=== PATIENT | female | born 1935 | race Caucasian/White ===

== ENCOUNTER 2016-09-15 20:32 | Emergency (ER) | payer OTHER ==
[~2016-09-15] VITALS: Ht 157.5 cm; Wt 66.0 kg
[~2016-09-15 20:32] MED LIST: ASPEC325 PO; CALCTAB5 PO; CLR10 PO; FSM70 PO; LSN25 PO; METO25TA3 PO; MULT-506 PO; SIMV40TA2 PO
[2016-09-15 20:34] VITALS: Ht 157.5 cm; Wt 66.0 kg
--- NOTE | 2016-09-15 20:44 | EMERGENCY ROOM VISIT NOTE ---
History Report prepared by Stewart: Oscar Briceno Under the Supervision of: Dr. Zach Burrows M.D. First contact with patient: 20:34 Chief Complaint: HYPERTENSION Stated Complaint: HYPERTENSION History of Present Illness The patient is a 81 year old female who presents to the Emergency Room with complaints of hypertension that began today. The patient states her blood pressure was around 198/? all day today. Currently her blood pressure is 203/ 76. She states that her blood pressure will not go down. She was told to take an extra half of a Metoprolol pill when her symptoms were occurring. She also has a popped blood vessel in her right eye. She notes that she has been eating salted almonds even though she is supposed to watch her sodium intake. She takes a baby aspirin everyday. She also takes Prednisone for her rheumatoid arthritis. She denies any other symptoms. Source of History: patient Onset: today Position: other (global) Symptom Intensity: 203/76 Quality: other (HTN) Timing: constant Note: She has a popped blood vessel in her right eye. She denies any other symptoms. Review of Systems See HPI for pertinent positives & negatives. A total of 10 systems reviewed and were otherwise negative. Past Medical & Surgical Medical Problems: (1) HTN (hypertension) (2) Rheumatoid arthritis Family History Omitted due to age. Social History Smoking Status: Unknown if Ever Smoked Smokeless Tobacco Use: No Drug Use: none Occupation Status: retired Current/Historical Medications Scheduled Ascorbic Acid (Vitamin C), 500 MG PO DAILY Aspirin (Aspirin Ec), 81 MG PO DAILY Lisinopril (Zestril), 30 MG PO DAILY Metoprolol Succinate (Metoprolol Succinate ER), 25 MG PO DAILY Multiple Vitamins W/ Minerals (Womens One Daily), 1 TAB PO DAILY Prednisone (Prednisone), 5 MG PO DAILY Allergies Coded Allergies: Latex (Unverified Allergy, Severe, ANAPHYLAXIS, 11/16/10) Penicillins (Unverified Allergy, Severe, ANAPHYLAXIS, 11/16/10) SHELLFISH (Unverified Allergy, Severe, ANAPHYLAXIS, 11/16/10) Physical Exam Vital Signs Date Time Temp Pulse Resp B/P Pulse Ox O2 Delivery O2 Flow Rate FiO2 09/15/16 23:25 36.7 64 18 153/89 94 09/15/16 23:24 64 18 153/89 94 Room Air 09/15/16 21:32 54 16 95 09/15/16 21:31 159/92 09/15/16 21:17 59 18 95 09/15/16 21:14 55 09/15/16 21:01 175/72 09/15/16 20:34 36.7 56 20 204/76 97 Room Air Physical Exam GENERAL: Patient is a healthy-appearing well-nourished HEAD: Normocephalic atraumatic EYES: Ocular movements intact pupils equal and react to light. Injected sclera on the right. Does not surround the iris. OROPHARYNX mucous membranes are moist no exudates present no erythema or edema present NECK: Supple no nuchal rigidity CHEST: Good equal expansion LUNGS: Clear and equal to auscultation CARDIAC: Normal S1 and S2 ABDOMEN: Soft nontender no guarding BACK: No CVA tenderness EXTREMITIES: No pain upon palpation normal muscle strength in all groups no clubbing cyanosis or edema NEURO: Patient is following commands is answering questions appropriately. Alert and oriented x3 Cranial Nerves 2-12 grossly intact Medical Decision & Procedures ER Provider Diagnostic Interpretation: Radiology results as stated below per my review and radiologist interpretation: SINGLE VIEW CHEST CLINICAL HISTORY: Hypertension. FINDINGS: An AP, portable, upright chest radiograph is compared to study dated 11/28/2010. The examination is degraded by portable technique and patient rotation. The heart is top normal for projection and there is atherosclerotic calcification of the thoracic aorta. The pulmonary vasculature is noncongested. Chronic interstitial thickening is unchanged. Minimal left basilar atelectasis is observed. There is no airspace consolidation typical for pneumonia or large pleural effusion. No pneumothorax is seen. The skeletal structures are osteopenic. Degenerative change and scoliosis are noted in the thoracic spine. IMPRESSION: No acute cardiopulmonary abnormality. Electronically signed by: Jose Ridley M.D. 09/15/2016 9:09 PM Dictated Date/Time: 09/15/2016 9:09 PM Laboratory Results 09/15/16 21:00 Red Blood Count 4.41, Mean Corpuscular Volume 92.3, Mean Corpuscular Hemoglobin 31.3, Mean Corpuscular Hemoglobin Concent 33.9, Mean Platelet Volume 11.5, Neutrophils (%) (Auto) 70.9, Lymphocytes (%) (Auto) 17.0, Monocytes (%) (Auto) 9.0, Eosinophils (%) (Auto) 2.5, Basophils (%) (Auto) 0.4, Neutrophils # (Auto) 6.08, Lymphocytes # (Auto) 1.46, Monocytes # (Auto) 0.77, Eosinophils # (Auto) 0.21, Basophils # (Auto) 0.03 09/15/16 21:00 Test 09/15/16 21:00 White Blood Count 8.57 K/uL (4.8-10.8) Red Blood Count 4.41 M/uL (4.2-5.4) Hemoglobin 13.8 g/dL (12.0-16.0) Hematocrit 40.7 % (37-47) Mean Corpuscular Volume 92.3 fL (80-100) Mean Corpuscular Hemoglobin 31.3 pg (25-34) Mean Corpuscular Hemoglobin Concent 33.9 g/dl (32-36) Platelet Count 209 K/uL (130-400) Mean Platelet Volume 11.5 fL (7.4-10.4) Neutrophils (%) (Auto) 70.9 % Lymphocytes (%) (Auto) 17.0 % Monocytes (%) (Auto) 9.0 % Eosinophils (%) (Auto) 2.5 % Basophils (%) (Auto) 0.4 % Neutrophils # (Auto) 6.08 K/uL (1.4-6.5) Lymphocytes # (Auto) 1.46 K/uL (1.2-3.4) Monocytes # (Auto) 0.77 K/uL (0.11-0.59) Eosinophils # (Auto) 0.21 K/uL (0-0.5) Basophils # (Auto) 0.03 K/uL (0-0.2) RDW Standard Deviation 47.7 fL (36.4-46.3) RDW Coefficient of Variation 14.1 % (11.5-14.5) Immature Granulocyte % (Auto) 0.2 % Immature Granulocyte # (Auto) 0.02 K/uL (0.00-0.02) Prothrombin Time 11.4 SECONDS (9.0-12.0) Prothromb Time International Ratio 1.1 (0.9-1.1) Activated Partial Thromboplast Time 25.7 SECONDS (21.0-31.0) Partial Thromboplastin Ratio 1.0 Urine Color YELLOW Urine Appearance CLEAR (CLEAR) Urine pH 6.0 (4.5-7.5) Urine Specific [place] 1.000 (1.000-1.030) Urine Protein NEG (NEG) Urine Glucose (UA) NEG (NEG) Urine Ketones NEG (NEG) Urine Occult Blood TRACE (NEG) Urine Nitrite NEG (NEG) Urine Bilirubin NEG (NEG) Urine Urobilinogen NEG (NEG) Urine Leukocyte Esterase TRACE (NEG) Urine WBC (Auto) 1-5 /hpf (0-5) Urine RBC (Auto) 0-4 /hpf (0-4) Urine Hyaline Casts (Auto) 0 /lpf (0-5) Urine Epithelial Cells (Auto) 0-5 /lpf (0-5) Urine Bacteria (Auto) NEG (NEG) Anion Gap 8.0 mmol/L (3-11) Est Creatinine Clear Calc Drug Dose 54.8 ml/min Estimated GFR () 90.2 Estimated GFR (Non- 77.8 BUN/Creatinine Ratio 22.7 (10-20) Calcium Level 9.1 mg/dl (8.5-10.1) Total Bilirubin 0.7 mg/dl (0.2-1) Direct Bilirubin 0.2 mg/dl (0-0.2) Aspartate Amino Transf (AST/SGOT) 21 U/L (15-37) Alanine Aminotransferase (ALT/SGPT) 24 U/L (12-78) Alkaline Phosphatase 41 U/L (45-117) Total Creatine Kinase 115 U/L (26-192) Creatine Kinase MB 3.0 ng/ml (0.5-3.6) Creatine Kinase MB Ratio 2.6 (0-3.0) Troponin I < 0.015 ng/ml (0-0.045) Total Protein 7.0 gm/dl (6.4-8.2) Albumin 4.0 gm/dl (3.4-5.0) Lipase 118 U/L (73-393) Thyroid Stimulating Hormone (TSH) 3.860 uIu/ml (0.300-4.500) Labs reviewed by ED physician. ECG Indication: other (Hypertension) Rate (beats per minute): 55 Rhythm: sinus bradycardia Findings: 1st degree AV block, no acute ischemic change, no ectopy ED Course 2033: Past medical records reviewed. The patient was evaluated in room B6. A complete history and physical examination was performed. 2215: Upon reexamination the patient is resting. I discussed results and treatment plan with the patient. She verbalizes agreement and understanding. The patient is ready for discharge. Medical Decision Differential diagnosis: Etiologies such as toxicologic, infection, hypoglycemia, electrolyte abnormalities, cardiac sources, intracerebral event, neurologic, as well as others were entertained. This is an 81-year-old female who presents emergency department complaining of hypertension. The patient's blood pressure was grossly elevated at home however she admits to eating salty almonds. She also took half of her blood pressure medication pill at home. I will note that the patient is normotensive here in the emergency department and besides a scleral bleed is asymptomatic. The patient's blood pressure has fallen without me doing anything. She agreed to be observed for 2 hours while check her laboratory work. I do believe that the patient as well as to be discharged home for follow-up with her primary care physician. Patient was in agreement with the treatment plan. Impression Primary Impression: HTN (hypertension) Scribe Attestation The scribe's documentation has been prepared under my direction and personally reviewed by me in its entirety. I confirm that the note above accurately reflects all work, treatment, procedures, and medical decision making performed by me. Departure Information Dispostion Home / Self-Care Referrals Juan Martinez (PCP) Anselmo Davis M.D. Forms HOME CARE DOCUMENTATION FORM, IMPORTANT VISIT INFORMATION, WORK / SCHOOL INSTRUCTIONS Patient Instructions ED Hypertension Conf Out Of Control, Hypertension Control, My [facility] Additional Instructions Follow up with DR Davis's office You have been examined and treated today on an emergency basis only. This is not a substitute for, or an effort to provide, complete comprehensive medical care. It is impossible to recognize and treat all injuries or illnesses in a single emergency department visit. It is therefore important that you follow up closely with Dr Davis. Call as soon as possible for an appointment. Thank you for your time and consideration. I look forward to speaking with you again soon. Please don't hesitate to call us if you have any questions. Problem Qualifiers Primary Impression: HTN (hypertension) Hypertension type: essential hypertension Qualified Codes: I10 - Essential ( primary) hypertension
[2016-09-15] MEDS ORDERED: ASCO-63 PO (20:53)
[2016-09-15] MEDS ORDERED: TPRSR25 PO (20:53)
[2016-09-15] MEDS ORDERED: ASPI81TA28 PO (20:53)
[2016-09-15] MEDS ORDERED: PRED-301 PO (20:53)
[2016-09-15] MEDS ORDERED: MULT-240 PO (20:53)
[2016-09-15] MEDS ORDERED: LSNP/30 PO (20:53)
[2016-09-15 21:10] LABS: BASO % 0.4 %; BASO ABS # 0.03 K/uL (0-0.2); COMPLETE YES; EOS % 2.5 %; HEMATOCRIT 40.7 % (37-47); IG% 0.2 %; LYMPH ABS # 1.46 K/uL (1.2-3.4); MEAN CELL VOLUME 92.3 fL (80-100); MEAN CORPUSCULAR HEMOGLOBIN 31.3 pg (25-34); MEAN CORPUSCULAR HGB CONC 33.9 g/dl (32-36); MEAN PLATELET VOLUME 11.5 fL (7.4-10.4); NEUT % 70.9 %; PLATELET COUNT 209 K/uL (130-400); RED BLOOD COUNT 4.41 M/uL (4.2-5.4); WHITE BLOOD COUNT 8.57 K/uL (4.8-10.8)
--- NOTE | 2016-09-15 21:11 | DIAGNOSTIC IMAGING REPORT ---
SINGLE VIEW CHEST CLINICAL HISTORY: Hypertension. FINDINGS: An AP, portable, upright chest radiograph is compared to study dated 11/28/2010. The examination is degraded by portable technique and patient rotation. The heart is top normal for projection and there is atherosclerotic calcification of the thoracic aorta. The pulmonary vasculature is noncongested. Chronic interstitial thickening is unchanged. Minimal left basilar atelectasis is observed. There is no airspace consolidation typical for pneumonia or large pleural effusion. No pneumothorax is seen. The skeletal structures are osteopenic. Degenerative change and scoliosis are noted in the thoracic spine. IMPRESSION: No acute cardiopulmonary abnormality. Electronically signed by: Jose Ridley M.D. 09/15/2016 9:09 PM Dictated Date/Time: 09/15/2016 9:09 PM
[2016-09-15 21:20] LABS: INR 1.1 (0.9-1.1); PROTHROMBIN TIME (PATIENT) 11.4 SECONDS (9.0-12.0)
[2016-09-15 21:26] LABS: ALT/SGPT 24 U/L (12-78); BLOOD UREA NITROGEN 17 mg/dl (7-18); BUN/CREATININE RATIO 22.7 (10-20); CALCIUM 9.1 mg/dl (8.5-10.1); CARBON DIOXIDE 27 mmol/L (21-32); CHLORIDE 106 mmol/L (98-107); CREATININE 0.73 mg/dl (0.60-1.20); GLUCOSE 90 mg/dl (70-99); POTASSIUM 3.8 mmol/L (3.5-5.1); SODIUM 141 mmol/L (136-145)
[2016-09-15 21:30] LABS: URINE APPEARANCE CLEAR (CLEAR); URINE BILIRUBIN NEG (NEG); URINE COLOR YELLOW; URINE EPITHELIAL CELL AUTO 0-5 /lpf (0-5); URINE NITRITE NEG (NEG); UROBILINOGEN NEG (NEG)
[2016-09-15 21:36] LABS: ALKALINE PHOSPHATASE 41 U/L (45-117); AST/SGOT 21 U/L (15-37); CKMB/CK RATIO 2.6 (0-3.0)
[2016-09-15 21:38] LABS: MANUAL MICROSCOPIC REQUIRED? NO; REVIEW REQ? NO
[2016-09-15 23:25] VITALS: BP 153/89; PULSE 64; TEMP 36.7; O2SAT 94
== END 2016-09-15 23:26 | disposition home or self-care (01) ==
LOC: EDBD 20:32 → C.EDB 20:33
DX: I10 Essential (primary) hypertension (principal); Z79.82 Long term (current) use of aspirin; Z79.52 Long term (current) use of systemic steroids; H57.8 Other specified disorders of eye and adnexa; M06.9 Rheumatoid arthritis, unspecified; Z79.899 Other long term (current) drug therapy

== ENCOUNTER 2019-06-26 18:09 | Inpatient (IN) ==
--- NOTE | 2019-06-26 18:37 | Emergency Department Note ---
Entered by Shayy Vazquez acting as a scribe for Elvin Garcia MD History of Present Illness General Chief complaint: Cardiac Assessment Stated complaint: NEAR SYNCOPE Time Seen by Provider: 06/26/19 18:21 History of Present Illness Provider complaint: chest pain Onset (ago): hour(s) (1.5) Location: chest Radiation: non-radiation Severity: similar to prior episodes (of NM 2 years ago) Pain Consistency: + other (resolving) Associated symptoms: + diaphoresis and + other (walking 4 blocks to get newpaper when pain started, near-syncopal, sat down on ground once pain started and triedd to breathe slowly) Treatments prior to arrival: other (Aspirin via EMS) The patient is an 83 year old female who presents to the ED with complaints of resolving chest pain that started 1.5 hours ago. The patient states that she was walking 4 blocks to get the newspaper when her chest pain started. The patient states that she also became diaphoretic and near-syncopal at this time. The patient states that she sat down on the ground when the pain started to tried to breathe slowly. The patient states that the pain is non-radiating. The patient notes that she has a history of NM 2 years ago and this feels similar. The patient states that she was given Aspirin via EMS and she is now feeling better. Home Medications Home Medications Medication Instructions Recorded Confirmed Type aspirin 81 mg tablet,delayed 81 mg PO DAILY #30 tab 01/03/19 06/26/19 Rx release multivitamin 1 cap PO DAILY #30 cap 01/03/19 06/26/19 Rx metoprolol succinate 50 mg 50 mg PO DAILY #90 tab 03/20/19 06/26/19 Rx tablet,extended release 24 hr losartan 100 mg tablet 100 mg PO DAILY #90 tab 04/24/19 06/26/19 Rx prednisone 5 mg tablet 5 mg PO DAILY #90 tab 05/17/19 06/26/19 Rx ascorbic acid (vitamin C) 500 mg PO DAILY 06/26/19 06/26/19 History cyclosporine [Restasis] 1 drp OPB Q12H 06/26/19 06/26/19 History lactobacillus combination no.4 3,000 mmu cells PO DAILY 06/26/19 06/26/19 History [Probiotic] loratadine 10 mg PO DAILY PRN 06/26/19 06/26/19 History psyllium husk [Metamucil] 1 tbsp PO BID 06/26/19 06/26/19 History Allergies Allergy/AdvReac Type Severity Reaction Status Date / Time latex Allergy Severe ANAPHYLAXIS Verified 04/13/19 10:41 Penicillins Allergy Severe ANAPHYLAXIS Verified 04/13/19 10:41 shellfish derived Allergy Severe ANAPHYLAXIS Verified 04/13/19 10:41 morphine AdvReac Confusion Unverified 06/26/19 21:00 Acetaminophen CAPS Allergy Unknown Uncoded 06/26/19 21:00 Iodine SOLN Allergy Unknown Uncoded 06/26/19 21:00 Codeine Derivatives AdvReac Confusion Uncoded 06/26/19 21:00 Meloxicam TABS AdvReac Confusion Uncoded 06/26/19 21:00 Past Med/Surg History Social History Preferred Language: Kazakh Visual Impairment: No Limitations Beliefs That Will Affect Care: None marital status: / Current Living Situation: Alone Current Living Situation Comment: alone, in [facility] Feels Safe at Home: Yes Safety Concerns: Feels Safe At This Time Smoking Status: Former smoker Second Hand Exposure: No ; Hx Alcohol Use: No Hx Substance Use: No Dental Care, Regularly: Yes Physical Activity Frequency: Daily Review of Systems See HPI for pertinent positives & negatives. and A total of 10 systems reviewed and were otherwise negative Physical Exam Vital Signs Vital Signs - 24 hr 06/26/19 18:17 06/26/19 18:18 06/26/19 18:29 Temperature 37.3 C Temperature Source Oral Pulse Rate 66 65 81 Pulse Rate [Left Apical] Pulse Rate from SpO2 Sensor 66 65 Pulse Rhythm Regular Pulse Rhythm [Left Apical] Pulse Strength Normal Respiratory Rate 20 22 18 Respiratory Effort / Characteristics Non-Labored Respiratory Depth Normal Respiratory Pattern Regular Blood Pressure 185/95 H 185/95 H Blood Pressure [Right Arm] Blood Pressure Mean 136 125 Blood Pressure Mean [Right Arm] Blood Pressure Position [Right Arm] Pulse Oximetry 97 97 96 Oxygen Delivery Method Room Air Sepsis Recent Fever Within 48 Hours No Sepsis New/Unexplained Change in Mental Status No Sepsis Action Taken by Nursing No Action Required 06/26/19 18:30 06/26/19 19:00 06/26/19 19:05 Temperature Temperature Source Pulse Rate 61 60 59 L Pulse Rate [Left Apical] 59 L Pulse Rate from SpO2 Sensor 62 60 58 L Pulse Rhythm Pulse Rhythm [Left Apical] Regular Pulse Strength Respiratory Rate 17 14 16 Respiratory Effort / Characteristics Normal for Patient Respiratory Depth Normal Respiratory Pattern Blood Pressure 154/83 H Blood Pressure [Right Arm] 154/83 H Blood Pressure Mean 112 Blood Pressure Mean [Right Arm] 106 Blood Pressure Position [Right Arm] Lying Pulse Oximetry 94 92 96 Oxygen Delivery Method Room Air Sepsis Recent Fever Within 48 Hours Sepsis New/Unexplained Change in Mental Status Sepsis Action Taken by Nursing 06/26/19 19:30 06/26/19 19:31 06/26/19 20:00 Temperature Temperature Source Pulse Rate 68 56 L 63 Pulse Rate [Left Apical] Pulse Rate from SpO2 Sensor 67 56 L 60 Pulse Rhythm Pulse Rhythm [Left Apical] Pulse Strength Respiratory Rate 25 H 23 23 Respiratory Effort / Characteristics Respiratory Depth Respiratory Pattern Blood Pressure 181/75 H Blood Pressure [Right Arm] Blood Pressure Mean 130 Blood Pressure Mean [Right Arm] Blood Pressure Position [Right Arm] Pulse Oximetry 95 97 95 Oxygen Delivery Method Sepsis Recent Fever Within 48 Hours Sepsis New/Unexplained Change in Mental Status Sepsis Action Taken by Nursing 06/26/19 20:01 06/26/19 20:30 06/26/19 20:31 Temperature Temperature Source Pulse Rate 59 L 53 L 56 L Pulse Rate [Left Apical] Pulse Rate from SpO2 Sensor 59 L 55 L 56 L Pulse Rhythm Pulse Rhythm [Left Apical] Pulse Strength Respiratory Rate 21 19 24 Respiratory Effort / Characteristics Respiratory Depth Respiratory Pattern Blood Pressure 180/87 H 176/82 H Blood Pressure [Right Arm] Blood Pressure Mean 128 116 Blood Pressure Mean [Right Arm] Blood Pressure Position [Right Arm] Pulse Oximetry 96 95 95 Oxygen Delivery Method Sepsis Recent Fever Within 48 Hours Sepsis New/Unexplained Change in Mental Status Sepsis Action Taken by Nursing General: Non-ill appearing older female in no acute distress. HEENT: Normal cephalic atraumatic. Pupils are equal round and reactive to light. Extraocular movements are intact. Oropharynx is pink with moist mucous membranes. No swelling of the mouth lips or tongue. Neck: Supple with a midline trachea. No meningeal signs or stiffness, no JVD or bruits. No Stridor. Chest: Clear to auscultation bilaterally. No wheezes or rhonchi. No increased work of breathing. Heart: regular rate and rhythm. Abdomen: Soft nontender, nondistended without rebound guarding or rigidity. Extremities: Significant chronic osteoarthritis of hands. No cyanosis clubbing or edema. No calf tenderness or asymmetry Spine/Back. Non tender to palpation. No CVA tenderness Skin: Good turgor without rashes. Neurologic exam: Cranial nerves two through 12 are intact. Motor and sensation are intact and symmetrical throughout. Course Course 1821: Past medical records reviewed. The patient was evaluated in room C01B. A complete history and physical exam was performed. 1917: I reevaluated the patient and she is resting comfortably. She currently have no complaints. I updated her on the plan for admission and she verbally agrees and understands. 1931: [facility] He will evaluate the patient for further management. Consultations Consultation #1: I discussed the patient's case with Dr. [facility] Hospitalist. He will evaluate the patient for further management. Time: 19:32 Administered Medications Heparin Sodium/Dextrose (Heparin Sodium/Dextrose) 25,000 units in 500 mls @ 13 mls/hr IV .Q24H DOLLY; Protocol Stop: 07/26/19 20:59 Last Admin: 06/26/19 21:46 Dose: 650 units/hr, 13 mls/hr Documented by: [id number] Cosigned by: [id number] Nitroglycerin (Nitro-Bid 2%) 1 inch EXT Q6 DOLLY Stop: 07/27/19 00:00 Last Admin: 06/26/19 21:05 Dose: 1 inch Documented by: [id number] Discontinued Medications Heparin Sodium/Dextrose () 1 ea IV ONE ONE; Protocol Stop: 06/26/19 20:48 Last Admin: 06/26/19 22:41 Dose: 1 ea Documented by: [id number] Heparin Sodium/Dextrose (Heparin Sodium/Dextrose) Confirm Administered Dose 25,000 units IV .STK-MED ONE Stop: 06/26/19 21:03 Last Admin: 06/26/19 21:05 Dose: 650 units Documented by: [id number] Cosigned by: [id number] Nitroglycerin (Nitro-Bid 2%) Confirm Administered Dose 18 inch .ROUTE .STK-MED ONE Stop: 06/26/19 21:04 Last Admin: 06/26/19 22:10 Dose: Not Given Documented by: [id number] Nitroglycerin (Nitrostat) Confirm Administered Dose 0.4 mg .ROUTE .STK-MED ONE Stop: 06/26/19 21:05 Last Admin: 06/26/19 21:05 Dose: 0.4 mg Documented by: [id number] Medical Decision Making Differential Diagnosis Differentials include acute coronary syndrome, arrhythmia, unstable angina, CHF, metabolic and electrolyte abnormality. Medical Records Attestation: I reviewed the patient's medical records. Home Medications Current Medication List: was personally reviewed by me Laboratory Data Attestation: I reviewed the patient's lab results. Result diagrams: 06/26/19 17:45 06/26/19 17:45 Lab Results 06/26/19 06/26/19 06/26/19 Range/Units 17:45 17:45 19:40 WBC 7.99 (4.8-10.8) K/uL RBC 4.17 L (4.2-5.4) M/uL Hgb 12.9 (12.0-16.0) g/dL Hct 39.0 (37-47) % MCV 93.5 (80-100) fL MCH 30.9 (25-34) pg MCHC 33.1 (32-36) g/dL RDW Std Deviation 49.6 H (36.4-46.3) fL RDW Coeff of Delvin 14.4 (11.5-14.5) % Plt Count 200 (130-400) K/uL MPV 11.9 H (7.4-10.4) fL Immature Gran % (Auto) 0.3 % Neut % (Auto) 75.9 % Lymph % (Auto) 13.9 % [place] % (Auto) 7.6 % Eos % (Auto) 2.0 % Baso % (Auto) 0.3 % Immature Gran # (Auto) 0.02 (0.00-0.02) K/uL Neut # (Auto) 6.07 (1.4-6.5) K/uL Lymph # (Auto) 1.11 L (1.2-3.4) K/uL [place] # (Auto) 0.61 H (0.11-0.59) K/uL Eos # (Auto) 0.16 (0-0.5) K/uL Baso # (Auto) 0.02 (0-0.2) K/uL PT 11.2 (9.0-12.0) Seconds INR 1.1 (0.9-1.1) APTT 25.7 (21.0-31.0) Seconds PTT Ratio 0.9 Sodium 138 (136-145) mmol/L Potassium 3.9 (3.5-5.1) mmol/L Chloride 105 (98-107) mmol/L Carbon Dioxide 28 (21-32) mmol/L Anion Gap 5.0 (3-11) BUN 15 (7-18) mg/dl Creatinine 0.86 (0.6-1.2) mg/dl Est Cr Clr Drug Dosing 44.4 ml/min Est GFR ( Amer) 72.9 Est GFR (Non-Af Amer) 62.9 BUN/Creatinine Ratio 17.1 (10-20) Glucose 112 H (70-99) mg/dl Calcium 9.4 (8.5-10.1) mg/dl Total Bilirubin 0.8 (0.2-1) mg/dl AST 45 H (15-37) U/L ALT 47 (12-78) U/L Alkaline Phosphatase 64 (45-117) U/L Troponin I < 0.015 (0-0.045) ng/ml Total Protein 7.0 (6.4-8.2) gm/dl Albumin 3.9 (3.4-5.0) gm/dl Globulin 3.1 (2.5-4.0) gm/dl Albumin/Globulin Ratio 1.3 (0.9-2) Lipase 119 (73-393) U/L Imaging Data Radiologist's Impression: Radiology results as stated below per my review and the radiologist's interpretation: XR chest 1V portable CLINICAL HISTORY: Atypical chest pain COMPARISON STUDY: 09/15/2016 FINDINGS: The heart is borderline enlarged. There is no failure. There is no lobar consolidation. There are no pleural effusions. There is minor basilar atelectasis/scarring unchanged from the prior study.[ IMPRESSION: No active disease in the chest. ACT 112: Negative or not required by law. Electronically signed by: Bi Madison M.D. 06/26/2019 6:45 PM ECG Data Attestation: I personally reviewed and interpreted this ECG as follows: Indication: + chest pain Rate (beats per minute): 60 Rhythm: + normal sinus ECG Intervals/blocks: + Right Bundle branch block ECG Anderson: + Left axis deviation ECG ST segments: no ST depression and no ST elevation Comparison ECG Date: from (09/15/2016) Change: the following changes noted (RBBB new) Blood Pressure Blood Pressure Findings: Elevated blood pressure Blood Pressure Disposition: further management by hospitalist MDM Narrative This patient comes in as described above. She had an episode today where she had chest pain after walking. She had severe pressure and felt sweaty and felt like she was in a pass out she sat down and went home and now feels better. She has had a history of heart attack in the past and says she felt similar to this in the past she may have felt like this yesterday as well but has not been sick at all lately. No fever or chills. there is no fall or trauma. No pain or swelling in her legs. She looks well on my initial exam. She did come in by ambulance they gave her aspirin. she do not require any nitro as her symptoms have gotten better. IV access established. EKG, chest x-ray, multiple blood testing was obtained. She was reassessed frequently. She remained stable and pain-free. EKG does not suggest acute coronary syndrome or significant arrhythmia and there is no change compared to old. Troponin is not elevated. Chest x-ray is unremarkable and does not suggest congestive heart failure, pneum onia or pneumothorax. She has no acute electrolyte or metabolic abnormalities. She is not anemic. She has nothing suggest infection or sepsis. I do think given her history that she should be admitted/observe for further cardiac evaluation as I am concerned for unstable angina given the fact that she has severe chest pain and near syncope and diaphoresis after walking. I have consulted Dr. Mcpherson to see her in the ER for these measures. Impression & Plan Chest pain, Unstable angina, Near syncope, HTN (hypertension), CAD (coronary artery disease) Discharge Plan Visit Data *Final* Discharge Date/Time: 06/26/19 21:21 Chief Complaint: Cardiac Assessment Stated Complaint: NEAR SYNCOPE ED Provider: Elvin Garcia Discharge Problem: Chest pain, Unstable angina, Near syncope, HTN (hypertension), CAD (coronary artery disease) Patient Disposition: Admitted As Inpatient Discharge Instructions Interventions: ED Discharge Assessment Last Done: 06/26/19 21:21 Discharge Problem: Chest pain Qualifiers: Chest pain type: unspecified Qualified Code(s): R07.9 - Chest pain, unspecified HTN (hypertension) Qualifiers: Hypertension type: unspecified Qualified Code(s): I10 - Essential (primary) hypertension CAD (coronary artery disease) Qualifiers: Coronary Disease-Associated Artery/Lesion type: unspecified vessel or lesion type [place] vs. transplanted heart: [place] heart Associated angina: with stable angina Qualified Code(s): I25.118 - Atherosclerotic heart disease of [place] coronary artery with other forms of angina pectoris The laurel's documentation has been prepared under my direction and personally reviewed by me in its entirety. I confirm that the note above accurately reflects all work, treatment, procedures, and medical decision making performed by me.
--- NOTE | 2019-06-26 18:46 | XRay Report ---
XR chest 1V portable CLINICAL HISTORY: Atypical chest pain COMPARISON STUDY: 09/15/2016 FINDINGS: The heart is borderline enlarged. There is no failure. There is no lobar consolidation. The re are no pleural effusions. There is minor basilar atelectasis/scarring unchanged from the prior aruna dy.[ IMPRESSION: No active disease in the chest. ACT 112: Negative or not required by law. Electronically signed by: Bi Madison M.D. 06/26/2019 6:45 PM
[2019-06-26 18:49] LABS: Basophils # (auto) 0.02 K/uL (0-0.2); Basophils % (auto) 0.3 %; Eosinophils # (auto) 0.16 K/uL (0-0.5); Hemoglobin 12.9 g/dL (12.0-16.0); Immature Granulocytes # (auto) 0.02 K/uL (0.00-0.02); Immature Granulocytes % (auto) 0.3 %; Lymphocytes # (auto) 1.11 K/uL (1.2-3.4); Lymphocytes % (auto) 13.9 %; Mean Corpuscular Hemoglobin 30.9 pg (25-34); Mean Corpuscular Hgb Conc 33.1 g/dL (32-36); Mean Corpuscular Volume 93.5 fL (80-100); Mean Platelet Volume 11.9 fL (7.4-10.4); Monocytes # (auto) 0.61 K/uL (0.11-0.59); Monocytes % (auto) 7.6 %; Neutrophils # (auto) 6.07 K/uL (1.4-6.5); Neutrophils % (auto) 75.9 %; Platelet Count 200 K/uL (130-400); RDW Coefficient of Variation 14.4 % (11.5-14.5); RDW Standard Deviation 49.6 fL (36.4-46.3); Red Blood Count 4.17 M/uL (4.2-5.4); White Blood Count 7.99 K/uL (4.8-10.8)
[2019-06-26 19:01] LABS: Alanine Aminotransferase 47 U/L (12-78); Albumin Level 3.9 gm/dl (3.4-5.0); Aspartate Aminotransferase 45 U/L (15-37); BUN Creatinine Ratio 17.1 (10-20); Blood Urea Nitrogen 15 mg/dl (7-18); Calcium 9.4 mg/dl (8.5-10.1); Carbon Dioxide 28 mmol/L (21-32); Chloride 105 mmol/L (98-107); Creatinine Clr Calc Pharmacy 44.4 ml/min; Est GFR (African American) 72.9; Est GFR (Non-African American) 62.9; Glucose 112 mg/dl (70-99); Lipase 119 U/L (73-393); Potassium 3.9 mmol/L (3.5-5.1); Sodium 138 mmol/L (136-145)
[2019-06-26 19:07] LABS: Albumin Globulin Ratio 1.3 (0.9-2); Alkaline Phosphatase 64 U/L (45-117); Bilirubin,Total 0.8 mg/dl (0.2-1); Globulin 3.1 gm/dl (2.5-4.0); Troponin I < 0.015 ng/ml (0-0.045)
[2019-06-26 20:22] LABS: INR 1.1 (0.9-1.1); Partial Thromboplastin Ratio 0.9; Partial Thromboplastin Time 25.7 Seconds (21.0-31.0); Prothrombin Time 11.2 Seconds (9.0-12.0)
[2019-06-26] MEDS ORDERED: Heparin IV Low Dose *NO* Bolus IV ONE (20:47)
[2019-06-26] MEDS ORDERED: NITROGLYCERIN SL 0.4 MG/TAB TAB SL PRN (20:54)
[2019-06-26] MEDS ORDERED: HEPARIN SODIUM/DEXTROSE 25,000 UNITS/500 ML BAG IV SCH (21:00)
[2019-06-26] MEDS ORDERED: HEPARIN 25000 UNIT/500 ML D5W IV ONE (21:02)
[2019-06-26] MEDS ORDERED: NITROGLYCERIN 2% OINTMENT 30GM TUBE ONE (21:03)
[2019-06-26] MEDS ORDERED: NITROGLYCERIN SL 0.4 MG/TAB TAB ONE (21:04)
[2019-06-26] MEDS: NITROGLYCERIN 2% OINTMENT 30GM TUBE EXT SCH (21:05)
--- NOTE | 2019-06-26 21:55 | History & Physical Report ---
Date of Service June 26, 2019 Assessment & Plan (1) Near syncope: The patient presents with an episode of near syncope, more likely of cardiogenic source. Present on Admission?: Yes (2) Unstable angina: Unstable angina/CAD/hypertension/history of cardiomyopathy- The patient will be admitted to telemetry for serial cardiac enzymes, serial EKG's, cardiac rhythm monitoring and a 2-D echocardiogram with Dopplers. Continue metoprolol succinate 50 mg daily, losartan 100 mg daily and aspirin 81 mg daily. Start Nitropaste 1 inch anterior chest wall every 6 hours. Start low-dose heparin without bolus per protocol. Nitroglycerin sublingual every 5 minutes as needed chest pain. Present on Admission?: Yes (3) CAD (coronary artery disease): See above Present on Admission?: Yes (4) History of myocardial infarction: See above Present on Admission?: Yes (5) Dyslipidemia: Reported as a diagnosis but on no specific medications. Check a fasting lipid panel. Start high-dose statin atorvastatin 40 mg daily. Present on Admission?: Yes (6) Rheumatoid arthritis: Continue prednisone 5 mg p.o. daily. Will not place on stress dose steroids at this time. Present on Admission?: Yes History of Present Illness Chief Complaint: The patient presents to the emergency department with the complaint of more severe chest pain began about 1/2 hours prior to arrival. Primary Care Provider: Elif Reyes DO The patient is an 83-year-old female with a past medical history including CA D,history of [place],hypertension, cardiomyopathy, dyslipidemia, diastolic heart dysfunction, rheumatoid arthritis and varicose veins of bilateral lower extremities. She and her friends report that about 1 month ago she began to experience fatigue, then about 2 days ago she started experiencing some chest discomfort, which today progressed to more significant chest pain about 1 and half hours prior to arrival at the ED. She has not had any recent travels or sick exposures. She has not been more less active than usual. She also reports episodes of intermittent nausea over the past few days as well. Allergies Allergy/AdvReac Type Severity Reaction Status Date / Time latex Allergy Severe ANAPHYLAXIS Verified 04/13/19 10:41 Penicillins Allergy Severe ANAPHYLAXIS Verified 04/13/19 10:41 shellfish derived Allergy Severe ANAPHYLAXIS Verified 04/13/19 10:41 morphine AdvReac Confusion Unverified 06/26/19 21:00 Acetaminophen CAPS Allergy Unknown Uncoded 06/26/19 21:00 Iodine SOLN Allergy Unknown Uncoded 06/26/19 21:00 Codeine Derivatives AdvReac Confusion Uncoded 06/26/19 21:00 Meloxicam TABS AdvReac Confusion Uncoded 06/26/19 21:00 Home Medications Home Medications Medication Instructions Recorded Confirmed Type aspirin 81 mg tablet,delayed 81 mg PO DAILY #30 tab 01/03/19 06/26/19 Rx release multivitamin 1 cap PO DAILY #30 cap 01/03/19 06/26/19 Rx metoprolol succinate 50 mg 50 mg PO DAILY #90 tab 03/20/19 06/26/19 Rx tablet,extended release 24 hr losartan 100 mg tablet 100 mg PO DAILY #90 tab 04/24/19 06/26/19 Rx prednisone 5 mg tablet 5 mg PO DAILY #90 tab 05/17/19 06/26/19 Rx ascorbic acid (vitamin C) 500 mg PO DAILY 06/26/19 06/26/19 History cyclosporine [Restasis] 1 drp OPB Q12H 06/26/19 06/26/19 History lactobacillus combination no.4 3,000 mmu cells PO DAILY 06/26/19 06/26/19 History [Probiotic] loratadine 10 mg PO DAILY PRN 06/26/19 06/26/19 History psyllium husk [Metamucil] 1 tbsp PO BID 06/26/19 06/26/19 History Past Med/Surg History Social History Preferred Language: [place] Visual Impairment: No Limitations Beliefs That Will Affect Care: None marital status: / Current Living Situation: Alone Current Living Situation Comment: [facility] Feels Safe at Home: Yes Safety Concerns: Feels Safe At This Time Smoking Status: Former smoker Second Hand Exposure: No ; Hx Alcohol Use: No Hx Substance Use: No Dental Care, Regularly: Yes Physical Activity Frequency: Daily Review of Systems Review of Systems: The patient denies chest palpitations, cough, lower extremity swelling, sore throat, fevers, chills, sweats, vomiting, diarrhea , constipation, abdominal pain, pelvic pain, blood in urine or stool, dysuria, urinary frequency or urgency, lightheadedness, dizziness, headache, memory loss, loss of consciousness, rash, abnormal bruising or bleeding, imbalance, focal or generalized weakness, numbness or tingling in arms or legs, generalized arthralgias or myalgias, back or neck pain, or night sweats. The review of systems is otherwise negative other than for that already noted above, and at least 10 systems have been reviewed. Physical Exam Physical Exam: The patient is awake, alert and oriented 3, well developed and well nourished, normocephalic and atraumatic, lying in bed and in no acute distress. HEENT--PERRL, EOMI, mucous membranes and oropharynx dry. Neck--supple. No JVD. No bruits. Thyroid normal, trachea midline, no alvin opathy. Heart--normal S1 and S2. No murmurs, rubs or gallops. Lungs--clear bilaterally, no respiratory distress, no accessory muscle use. Abdomen--normal bowel sounds and soft. Nontender. Nondistended. Extremities--no cyanosis or clubbing. No edema. There are good distal pulses b/l. Dermatologic--normal skin turgor, normal color, no abnormal lymph nodes, no rash. Neurologic--cranial nerves II through XII grossly intact. Rheumatologic--normal range of motion. Psychiatric--normal affect. Results & Data Vital Signs (Past 12 Hours) Vital Signs Temp Pulse Pulse Resp BP BP Pulse Ox 06/26/19 21:44 97.7 F 53 L 18 176/66 H 98 06/26/19 21:01 52 L 19 165/86 H 98 06/26/19 21:00 53 L 54 L 19 165/86 H 97 06/26/19 20:31 56 L 24 176/82 H 95 06/26/19 20:30 53 L 19 95 06/26/19 20:01 59 L 21 180/87 H 96 06/26/19 20:00 63 23 95 06/26/19 19:31 56 L 23 181/75 H 97 06/26/19 19:30 68 25 H 95 06/26/19 19:05 59 L 59 L 16 154/83 H 154/83 H 96 06/26/19 19:00 60 14 92 06/26/19 18:30 61 17 94 06/26/19 18:29 99.1 F 81 18 185/95 H 96 06/26/19 18:18 65 22 97 06/26/19 18:17 66 20 185/95 H 97 Laboratory Results Laboratory Results WBC 7.99 K/uL (4.8-10.8) 06/26/19 17:45 RBC 4.17 M/uL (4.2-5.4) L 06/26/19 17:45 Hgb 12.9 g/dL (12.0-16.0) 06/26/19 17:45 Hct 39.0 % (37-47) 06/26/19 17:45 MCV 93.5 fL (80-100) 06/26/19 17:45 MCH 30.9 pg (25-34) 06/26/19 17:45 MCHC 33.1 g/dL (32-36) 06/26/19 17:45 RDW Std Deviation 49.6 fL (36.4-46.3) H 06/26/19 17:45 RDW Coeff of Delvin 14.4 % (11.5-14.5) 06/26/19 17:45 Plt Count 200 K/uL (130-400) 06/26/19 17:45 MPV 11.9 fL (7.4-10.4) H 06/26/19 17:45 Immature Gran % (Auto) 0.3 % 06/26/19 17:45 Neut % (Auto) 75.9 % 06/26/19 17:45 Lymph % (Auto) 13.9 % 06/26/19 17:45 [place] % (Auto) 7.6 % 06/26/19 17:45 Eos % (Auto) 2.0 % 06/26/19 17:45 Baso % (Auto) 0.3 % 06/26/19 17:45 Immature Gran # (Auto) 0.02 K/uL (0.00-0.02) 06/26/19 17:45 Neut # (Auto) 6.07 K/uL (1.4-6.5) 06/26/19 17:45 Lymph # (Auto) 1.11 K/uL (1.2-3.4) L 06/26/19 17:45 [place] # (Auto) 0.61 K/uL (0.11-0.59) H 06/26/19 17:45 Eos # (Auto) 0.16 K/uL (0-0.5) 06/26/19 17:45 Baso # (Auto) 0.02 K/uL (0-0.2) 06/26/19 17:45 PT 11.2 Seconds (9.0-12.0) 06/26/19 19:40 INR 1.1 (0.9-1.1) 06/26/19 19:40 APTT 25.7 Seconds (21.0-31.0) 06/26/19 19:40 PTT Ratio 0.9 06/26/19 19:40 Sodium 138 mmol/L (136-145) 06/26/19 17:45 Potassium 3.9 mmol/L (3.5-5.1) 06/26/19 17:45 Chloride 105 mmol/L (98-107) 06/26/19 17:45 Carbon Dioxide 28 mmol/L (21-32) 06/26/19 17:45 Anion Gap 5.0 (3-11) 06/26/19 17:45 BUN 15 mg/dl (7-18) 06/26/19 17:45 Creatinine 0.86 mg/dl (0.6-1.2) 06/26/19 17:45 Est Cr Clr Drug Dosing 44.4 ml/min 06/26/19 17:45 Est GFR ( Amer) 72.9 06/26/19 17:45 Est GFR (Non-Af Amer) 62.9 06/26/19 17:45 BUN/Creatinine Ratio 17.1 (10-20) 06/26/19 17:45 Glucose 112 mg/dl (70-99) H 06/26/19 17:45 Calcium 9.4 mg/dl (8.5-10.1) 06/26/19 17:45 Total Bilirubin 0.8 mg/dl (0.2-1) 06/26/19 17:45 AST 45 U/L (15-37) H 06/26/19 17:45 ALT 47 U/L (12-78) 06/26/19 17:45 Alkaline Phosphatase 64 U/L (45-117) 06/26/19 17:45 Troponin I 0.019 ng/ml (0-0.045) 06/26/19 22:13 Total Protein 7.0 gm/dl (6.4-8.2) 06/26/19 17:45 Albumin 3.9 gm/dl (3.4-5.0) 06/26/19 17:45 Globulin 3.1 gm/dl (2.5-4.0) 06/26/19 17:45 Albumin/Globulin Ratio 1.3 (0.9-2) 06/26/19 17:45 Lipase 119 U/L (73-393) 06/26/19 17:45 Diagnostic Findings [place], [place] [phone] XRay Report Patient: Addi MCDOWELL Date: 06/26/19 MR#: [id number]: [address] Acct ID:[id number]: [address] Date: 1935City Zip: [place] [address] Age: 83Location: ED Sex: F Room/Bed: Att Phy:Diagnosis: NEAR SYNCOPE Liyah Phy: Elif Reyes, DOService Date: 06/26/19 Fam Phy:Interpreting Phy: Bi Madison MD Admit Phy: Ordering Phy: Elvin Garcia M.D. cc: ~ XR chest 1V portable CLINICAL HISTORY: Atypical chest pain COMPARISON STUDY: 09/15/2016 FINDINGS: The heart is borderline enlarged. There is no failure. There is no lobar consolidation. There are no pleural effusions. There is minor basilar atelectasis/scarring unchanged from the prior study.[ IMPRESSION: No active disease in the chest. ACT 112: Negative or not required by law. Electronically signed by: Bi Madison M.D. 06/26/2019 6:45 PM Dictated: 06/26/19 1844 Transcribed: 06/26/191843 Code Status & VTE Plan Code Status Full code VTE Prophylaxis Plan VTE Prophylaxis will be ordered: Yes PG Care Time/CCT Total # of Minutes Spent Total Time Spent with Patient: Total time spent is greater than 50% in coordination of care (as documented) at patient's floor/unit and/or counseling patient: (1) CAD (coronary artery disease) Associated angina: with stable angina Coronary Disease-Associated Artery/Lesion type: unspecified vessel or lesion type [place] vs. transplanted heart: [place] heart Qualified Code(s): I25.118 - Atherosclerotic heart disease of [place] coronary artery with other forms of angina pectoris
[2019-06-26] MEDS ORDERED: ALUMINUM/MAGNESIUM SUSP 30 ML UDC PO PRN (22:01)
[2019-06-26] MEDS ORDERED: ONDANSETRON INJ 2 MG/ML 2 ML VIAL IV PRN (22:01)
[2019-06-26] MEDS ORDERED: MAGNESIUM HYDROXIDE SUSP 30 ML UDC PO PRN (22:01)
[2019-06-26] MEDS ORDERED: ACETAMINOPHEN 325 MG TAB PO PRN (22:01)
[2019-06-26] MEDS ORDERED: HydrALAZINE HCL 20 MG/ML VIAL IV PRN (22:01)
[2019-06-26] MEDS ORDERED: MoRPHine SULFATE 2 MG/ML CARP IV PRN (22:01)
[2019-06-27] MEDS: RESTASIS~ORDER AWAITING ACTION SCH ×3 (01:27→15:50)
[2019-06-27 03:30] LABS: Basophils # (auto) 0.02 K/uL (0-0.2); Basophils % (auto) 0.3 %; Eosinophils # (auto) 0.28 K/uL (0-0.5); Eosinophils % (auto) 4.6 %; Hemoglobin 11.9 g/dL (12.0-16.0); Immature Granulocytes # (auto) 0.02 K/uL (0.00-0.02); Immature Granulocytes % (auto) 0.3 %; Lymphocytes # (auto) 1.39 K/uL (1.2-3.4); Lymphocytes % (auto) 22.7 %; Mean Corpuscular Hemoglobin 30.8 pg (25-34); Mean Corpuscular Hgb Conc 33.1 g/dL (32-36); Mean Corpuscular Volume 93.3 fL (80-100); Mean Platelet Volume 11.3 fL (7.4-10.4); Monocytes # (auto) 0.65 K/uL (0.11-0.59); Monocytes % (auto) 10.6 %; Neutrophils # (auto) 3.76 K/uL (1.4-6.5); Neutrophils % (auto) 61.5 %; Platelet Count 173 K/uL (130-400); RDW Coefficient of Variation 14.5 % (11.5-14.5); RDW Standard Deviation 49.3 fL (36.4-46.3); Red Blood Count 3.86 M/uL (4.2-5.4); White Blood Count 6.12 K/uL (4.8-10.8)
[2019-06-27 03:44] LABS: INR 1.1 (0.9-1.1); Partial Thromboplastin Ratio 1.4; Partial Thromboplastin Time 39.1 Seconds (21.0-31.0); Prothrombin Time 11.5 Seconds (9.0-12.0)
[2019-06-27 03:47] LABS: Albumin Level 3.3 gm/dl (3.4-5.0); BUN Creatinine Ratio 18.6 (10-20); Calcium 8.6 mg/dl (8.5-10.1); Creatinine Clr Calc Pharmacy 53.5 ml/min; Est GFR (Non-African American) 81.1; Potassium 3.4 mmol/L (3.5-5.1)
[2019-06-27 03:50] LABS: Albumin Globulin Ratio 1.3 (0.9-2); Bilirubin,Total 0.7 mg/dl (0.2-1); Globulin 2.6 gm/dl (2.5-4.0); Total Protein 5.9 gm/dl (6.4-8.2)
[2019-06-27] MEDS ORDERED: HEPARIN IV BOLUS 4,000 UNITS in SYRINGE 0 ML IV ONE (03:56)
[2019-06-27] MEDS: NITROGLYCERIN 2% OINTMENT 30GM TUBE EXT SCH ×2 (05:44→14:05)
[2019-06-27] MEDS: ASCORBIC ACID 500 MG TAB PO SCH (10:27)
[2019-06-27] MEDS: MULTIVITAMIN TAB PO SCH (10:27)
[2019-06-27] MEDS: ASPIRIN 81 MG ECTAB PO SCH (10:27)
[2019-06-27] MEDS: LACTOBACILLUS ACIDOPHILUS (FLORANEX) TAB PO SCH (10:28)
[2019-06-27] MEDS: LOSARTAN POTASSIUM 50 MG TAB PO SCH (10:28)
[2019-06-27] MEDS: PSYLLIUM 58.6% POWDER PACKET PO SCH ×2 (10:28→20:37)
[2019-06-27] MEDS: predniSONE 5 MG TAB PO SCH (10:28)
[2019-06-27 10:53] LABS: Partial Thromboplastin Ratio 2.9
[2019-06-27 10:56] LABS: Partial Thromboplastin Time 79.7 Seconds (21.0-31.0)
[2019-06-27] MEDS ORDERED: DiphenhydrAMINE HCL 50 MG/ML VIAL IV STA (14:03)
--- NOTE | 2019-06-27 14:03 | Cardiology Consultation ---
Date of Consultation June 27, 2019 Assessment & Plan (1) Unstable angina: (2) CAD (coronary artery disease): (3) HTN (hypertension): (4) Mitral regurgitation: (5) Dyslipidemia: ASSESSMENT/PLAN: 1. Unstable angina: Symptoms are concerning for unstable angina including rest pain last night in the ER. Currently she is chest pain-free. She had borderline circumflex disease in 2010 as well as other nonobstructive lesions in other vessels. She would like to undergo cardiac catheterization today. Risks and benefits of the procedure were discussed with her. She has made with a CT surgery is not available at this facility. Continue aspirin 81 mg daily. Continue beta-colin and ARB. 2. CAD: Had moderate circumflex lesion (FFR 0.9) in 2010. Medical therapy as above. For upcoming cataract catheterization, Solu-Medrol Benadryl be given for IV dye allergy. She is also on chronic prednisone. High-intensity statin therapy. 3. Mitral regurgitation: Non severe. Discussed with patient. Can be followed as an outpatient by Dr. Barahona. 4. Hypertension: Blood pressure has been elevated. Recommend titrating antihypertensive regimen to better control her blood pressure. She is already beta blocked with resting heart rate in the 50s. She is already on high-dose losartan. Consider calcium channel colin. Amlodipine 5 mg daily will be ordered. 5. Dyslipidemia: High-intensity statin therapy recommended. 6. Disposition: Cardiac catheterization as above. Patient care has been communicated with Dr. Dorado, of the primary hospitalist service. Highly complex medical issues. Thank you for allowing me to participate in the care of your patient. Please call for any other questions or concerns. Sincerely, Driss Rodriguez M.D. History of Present Illness Reason for Consultation: Unstable Requesting Physician: Dr. Dorado Attending Physician: Lacho Dorado History of Present Illness Ms. Tristan is a very pleasant 83-year-old female with a history significant for CAD, hypertension, dyslipidemia, rheumatoid arthritis, and prior cardiomyopathy with normalized LV systolic function. She presented to [facility] with chest pain and dyspnea with exertion. Her primary digital marketing executive is Dr. Barahona. She underwent cardiac catheterization on 11/16/2010 due to elevated troponin and chest pain. The cardiac catheterization demonstrated: Proximal LAD 30%; mid LAD 40%; trifurcation lesion within the proximal circumflex of 60-70% angiographically with FFR of 0.9, chronic total occlusion of ramus, mid RCA 30- 40% with an ejection fraction of 50%. According to Dr. Barahona records, she has a history of takotsubo in November of 2010 with non severe aortic and mitral insufficiency. She has a very active person, walking on a daily basis including up and down stairs to help take care of other residents. Over the past month, she has had worsening dyspnea with exertion which continues to progressively worsen with time. Two or 3 days ago she had a heaviness in her chest substernally that lasted throughout the day but was worse with exertion. There is no associated shortness of breath at rest without symptoms. Yesterday however while walking to get a newspaper at approximately 5:00 p.m. she had left-sided chest pain that lasted for 30 minutes. It felt as though she was getting punched in her chest. There was associated dyspnea, soaking diaphoresis, lightheadedness, and nausea. She also felt her heart beating strong. Her friend checked her heart rate and it was in the 80s. Once in the emergency department, she reports having no other episode of chest pain similar to the first which resolved with nitroglycer in. This chest pain occurred at rest while in bed. She is currently chest pain-free on heparin drip. She denies syncope, edema, melena, hematochezia, hematuria, or other bleeding. She denies vomiting, fevers, orthopnea. She denies shortness of breath currently. She reports having IV dye allergy. Review of systems: As above. Review of systems otherwise negative/unr emarkable. Family history: No known premature CAD. Social history: She quit smoking approximately 61 years ago. No alcohol or drugs. She is a . She had a children but all 3 daughters just after . A son also . She has 4 living sons, 2 of which talk with her. Two sons live locally. At the bedside was her medical POA, Aminta Hsu, and Aminta's daughter, Jessica. Allergies Allergy/AdvReac Type Severity Reaction Status Date / Time latex Allergy Severe ANAPHYLAXIS Verified 04/13/19 10:41 Penicillins Allergy Severe ANAPHYLAXIS Verified 04/13/19 10:41 shellfish derived Allergy Severe ANAPHYLAXIS Verified 04/13/19 10:41 codeine AdvReac Mild Confusion Verified 06/27/19 11:18 meloxicam AdvReac Mild Confusion Verified 06/27/19 11:20 morphine AdvReac Confusion Unverified 06/26/19 21:00 Acetaminophen CAPS Allergy Unknown Uncoded 06/26/19 21:00 Iodine SOLN Allergy Unknown Uncoded 06/26/19 21:00 Home Medications Home Medications Medication Instructions Recorded Confirmed Type aspirin 81 mg tablet,delayed 81 mg PO DAILY #30 tab 01/03/19 06/26/19 Rx release multivitamin 1 cap PO DAILY #30 cap 01/03/19 06/26/19 Rx metoprolol succinate 50 mg 50 mg PO DAILY #90 tab 03/20/19 06/26/19 Rx tablet,extended release 24 hr losartan 100 mg tablet 100 mg PO DAILY #90 tab 04/24/19 06/26/19 Rx prednisone 5 mg tablet 5 mg PO DAILY #90 tab 05/17/19 06/26/19 Rx ascorbic acid (vitamin C) 500 mg PO DAILY 06/26/19 06/26/19 History cyclosporine [Restasis] 1 drp OPB Q12H 06/26/19 06/26/19 History lactobacillus combination no.4 3,000 mmu cells PO DAILY 06/26/19 06/26/19 History [Probiotic] loratadine 10 mg PO DAILY PRN 06/26/19 06/26/19 History psyllium husk [Metamucil] 1 tbsp PO BID 06/26/19 06/26/19 History Patient History Medical History Allergic rhinitis Arthritis Benign paroxysmal positional vertigo (Resolved) CAD (coronary artery disease) (Acute) Diastolic dysfunction Dyslipidemia History of myocardial infarction History of pneumonia (Resolved) HTN (hypertension) (Acute) Mitral regurgitation Osteoarthritis Sensation of fullness in right ear (Resolved) Seronegative polyarthritis Shingles (Resolved) Vaginal enterocele Varicose veins of both lower extremities Vulvar atrophy Social History Preferred Language: [place] Citizen Communication Ability: Effective Visual Impairment: No Limitations Beliefs That Will Affect Care: None marital status: / Current Living Situation: Alone Current Living Situation Comment: alone, in [facility] Feels Safe at Home: Yes Safety Concerns: Feels Safe At This Time Smoking Status: Former smoker Second Hand Exposure: No ; Hx Alcohol Use: No Hx Substance Use: No Dental Care, Regularly: Yes Physical Activity Frequency: Daily Physical Exam Physical Exam: Gen.: No acute distress. Alert and oriented. HEENT: Anicteric sclera. Neck: No JVD. No bruits. Normal carotid upstrokes bilaterally. Cardiac: PMI was nondisplaced. No ventricular heave. Regular rate and rhythm. Normal S1-S2. 2/6 systolic murmur best heard at the apex. No rubs, or gallops. Pulmonary: Clear to auscultation bilaterally without wheezes, rales, or rhonchi. Abdomen: Soft, nontender, nondistended, with normoactive bowel sounds. No bruits noted. Extremities: 2+ radial pulses bilaterally. 2+ posterior tibialis pulses bilaterally. No edema or cyanosis. No palpable cords. Psychiatric: Affect appears appropriate. Chest: Nontender to palpation. Results & Data Vital Signs (Past 12 Hours) Vital Signs Temp Pulse Pulse Resp BP BP Pulse Ox 06/27/19 11:51 37.4 C 58 L 18 168/75 H 97 06/27/19 07:24 36.6 C 52 L 14 160/69 H 97 06/27/19 03:28 36.4 C L 49 L 16 144/65 H 98 Laboratory Results Laboratory Results - last 24 hr 06/26/19 06/26/19 06/26/19 17:45 17:45 19:40 WBC 7.99 RBC 4.17 L Hgb 12.9 Hct 39.0 MCV 93.5 MCH 30.9 MCHC 33.1 RDW Std Deviation 49.6 H RDW Coeff of Delvin 14.4 Plt Count 200 MPV 11.9 H Immature Gran % (Auto) 0.3 Neut % (Auto) 75.9 Lymph % (Auto) 13.9 [place] % (Auto) 7.6 Eos % (Auto) 2.0 Baso % (Auto) 0.3 Immature Gran # (Auto) 0.02 Neut # (Auto) 6.07 Lymph # (Auto) 1.11 L [place] # (Auto) 0.61 H Eos # (Auto) 0.16 Baso # (Auto) 0.02 PT 11.2 INR 1.1 APTT 25.7 PTT Ratio 0.9 Sodium 138 Potassium 3.9 Chloride 105 Carbon Dioxide 28 Anion Gap 5.0 BUN 15 Creatinine 0.86 Est Cr Clr Drug Dosing 44.4 Est GFR ( Amer) 72.9 Est GFR (Non-Af Amer) 62.9 BUN/Creatinine Ratio 17.1 Glucose 112 H Calcium 9.4 Total Bilirubin 0.8 AST 45 H ALT 47 Alkaline Phosphatase 64 Troponin I < 0.015 Total Protein 7.0 Albumin 3.9 Globulin 3.1 Albumin/Globulin Ratio 1.3 Lipase 119 06/26/19 06/27/19 06/27/19 22:13 03:10 03:10 WBC 6.12 RBC 3.86 L Hgb 11.9 L Hct 36.0 L MCV 93.3 MCH 30.8 MCHC 33.1 RDW Std Deviation 49.3 H RDW Coeff of Delvin 14.5 Plt Count 173 MPV 11.3 H Immature Gran % (Auto) 0.3 Neut % (Auto) 61.5 Lymph % (Auto) 22.7 [place] % (Auto) 10.6 Eos % (Auto) 4.6 Baso % (Auto) 0.3 Immature Gran # (Auto) 0.02 Neut # (Auto) 3.76 Lymph # (Auto) 1.39 [place] # (Auto) 0.65 H Eos # (Auto) 0.28 Baso # (Auto) 0.02 PT INR APTT PTT Ratio Sodium 141 Potassium 3.4 L Chloride 110 H Carbon Dioxide 31 Anion Gap 0 L BUN 13 Creatinine 0.69 Est Cr Clr Drug Dosing 53.5 Est GFR ( Amer) 94.0 Est GFR (Non-Af Amer) 81.1 BUN/Creatinine Ratio 18.6 Glucose 94 Calcium 8.6 Total Bilirubin 0.7 AST 26 ALT 38 Alkaline Phosphatase 39 L Troponin I 0.019 Total Protein 5.9 L Albumin 3.3 L Globulin 2.6 Albumin/Globulin Ratio 1.3 Lipase 06/27/19 06/27/19 06/27/19 03:10 10:20 11:13 WBC RBC Hgb Hct MCV MCH MCHC RDW Std Deviation RDW Coeff of Delvin Plt Count MPV Immature Gran % (Auto) Neut % (Auto) Lymph % (Auto) [place] % (Auto) Eos % (Auto) Baso % (Auto) Immature Gran # (Auto) Neut # (Auto) Lymph # (Auto) [place] # (Auto) Eos # (Auto) Baso # (Auto) PT 11.5 INR 1.1 APTT 39.1 H 79.7 H* PTT Ratio 1.4 2.9 Sodium Potassium Chloride Carbon Dioxide Anion Gap BUN Creatinine Est Cr Clr Drug Dosing Est GFR ( Amer) Est GFR (Non-Af Amer) BUN/Creatinine Ratio Glucose Calcium Total Bilirubin AST ALT Alkaline Phosphatase Troponin I < 0.015 Total Protein Albumin Globulin Albumin/Globulin Ratio Lipase Diagnostic Findings Echo 06/27/2019: Normal LV size, wall motion, systolic function. EF 55-60%. Sclerotic aortic valve. Mild AI. Posterior leaflet mitral valve prolapse with eccentric mild to moderate MR. Normal RVSP. Telemetry personally reviewed: Sinus rhythm. ECG 06/27/2019 at 7:11 a.m.: Sinus bradycardia with first-degree AV block at 53 bpm. RBBB. Cardiac catheterization report reviewed as noted above. Chest x-ray 06/26/2019: No acute disease. Medications Administered Current Inpatient Medications Acetaminophen (Tylenol) 650 mg PO Q4H PRN PRN Reason: Pain or Fever Stop: 07/26/19 22:00 Al Hydrox/Mg Hydrox/Simethicone (Maalox) 15 ml PO Q4H PRN PRN Reason: Dyspepsia Stop: 07/26/19 22:00 Ascorbic Acid (Vitamin C) 500 mg PO DAILY DOLLY Stop: 07/27/19 08:59 Last Admin: 06/27/19 10:27 Dose: 500 mg Documented by: Aspirin (Ecotrin Ectab) 81 mg PO DAILY DOLLY Stop: 07/27/19 08:59 Last Admin: 06/27/19 10:27 Dose: 81 mg Documented by: Diphenhydramine HCl (Benadryl) 25 mg IV NOW STA Stop: 06/27/19 14:04 Hydralazine HCl (Hydralazine Hcl) 10 mg IV Q4H PRN PRN Reason: Blood Pressure - High Stop: 07/26/19 22:00 Heparin Sodium/Dextrose (Heparin Sodium/Dextrose) 25,000 units in 500 mls @ 13 mls/hr IV .Q24H DOLLY; Protocol Stop: 07/26/19 20:59 Last Titration: 06/27/19 11:10 Dose: 650 units/hr, 13 mls/hr Documented by: Methylprednisolone 125 mg/ (Syringe) 2 mls @ 1.5 mls/min IV ONE ONE Stop: 06/27/19 14:04 Lactobacillus Acidophilus (Floranex) 4 tab PO DAILY [facility] Stop: 07/27/19 08:59 Last Admin: 06/27/19 10:28 Dose: 4 tab Documented by: Losartan Potassium (Cozaar) 100 mg PO DAILY [facility] Stop: 07/27/19 08:59 Last Admin: 06/27/19 10:28 Dose: 100 mg Documented by: Magnesium Hydroxide (Milk Of Magnesia) 30 ml PO Q12H PRN PRN Reason: Constipation Stop: 07/26/19 22:00 Metoprolol Succinate (Toprol Xl) 50 mg PO DAILY [facility] Stop: 07/27/19 08:59 Last Admin: 06/27/19 14:05 Dose: 50 mg Documented by: Miscellaneous (Order Awaiting Action) 1 ea N/A QS [facility] Stop: 07/27/19 00:00 Last Admin: 06/27/19 09:03 Dose: Not Given Documented by: Morphine Sulfate (Morphine Sulfate) 2 mg IV Q30M PRN PRN Reason: Chest Pain Stop: 07/10/19 22:00 Multivitamins (Multivitamin Tab) 1 tab PO QAM [facility] Stop: 07/27/19 08:59 Last Admin: 06/27/19 10:27 Dose: 1 tab Documented by: Nitroglycerin (Nitro-Bid 2%) 1 inch EXT Q6 [facility] Stop: 07/27/19 00:00 Last Admin: 06/27/19 14:05 Dose: 1 inch Documented by: Nitroglycerin (Nitrostat) 0.4 mg SL PRN PRN PRN Reason: Chest Pain Stop: 07/26/19 20:53 Ondansetron HCl (Zofran) 4 mg IV Q6H PRN PRN Reason: Nausea Stop: 07/26/19 22:00 Prednisone (Prednisone) 5 mg PO DAILY [facility] Stop: 07/27/19 08:59 Last Admin: 06/27/19 10:28 Dose: 5 mg Documented by: Psyllium Hydrophilic Mucilloid (Metamucil) 1 pkt PO BID [facility] Stop: 07/27/19 08:59 Last Admin: 06/27/19 10:28 Dose: 1 pkt Documented by: PG Care Time/CCT Total # of Minutes Spent Total Time Spent with Patient: Total time spent is greater than 50% in coordination of care (as documented) at patient's floor/unit and/or counseling patient: (1) CAD (coronary artery disease) Associated angina: with stable angina Coronary Disease-Associated Artery/Lesion type: unspecified vessel or lesion type [place] vs. transplanted heart: [place] heart Qualified Code(s): I25.118 - Atherosclerotic heart disease of [place] coronary artery with other forms of angina pectoris (2) HTN (hypertension) Hypertension type: unspecified Qualified Code(s): I10 - Essential (primary) hypertension
[2019-06-27] MEDS: METOPROLOL SUCC 50MG EXT REL TAB PO SCH (14:05)
[2019-06-27] MEDS ORDERED: NiCARDipine HCL INJ 2.5 MG/ML 10 ML AMP ONE (14:25)
[2019-06-27] MEDS ORDERED: MIDAZOLAM HCL 1 MG/ML 2ML VIAL ONE (14:25)
[2019-06-27] MEDS ORDERED: fentaNYL citrate 100 MCG/2 ML VIAL ONE (14:25)
[2019-06-27] MEDS ORDERED: HEPARIN (PORCINE) 1000 UNIT/ML 10 ML (CATH LAB USE ONLY) ONE (14:25)
[2019-06-27] MEDS ORDERED: methylPREDNISolone 125 MG/2 ML VIAL ONE (14:26)
[2019-06-27] MEDS ORDERED: NITROGLYCERIN/D5W 100MCG/ML 20ML SYR ONE (14:26)
--- NOTE | 2019-06-27 14:29 | Pre Anesthesia Assessment ---
Date of Service June 27, 2019 Pre Sedation Assessment Vital Signs Temp Pulse Pulse Pulse Resp BP BP 06/27/19 11:51 37.4 C 58 L 18 06/27/19 07:24 36.6 C 52 L 14 160/69 H 06/27/19 03:28 36.4 C L 49 L 16 144/65 H 06/27/19 00:33 52 L 06/26/19 23:39 36.8 C 54 L 18 06/26/19 21:47 62 06/26/19 21:44 36.5 C 53 L 18 06/26/19 21:01 52 L 19 165/86 H 06/26/19 21:00 53 L 54 L 19 06/26/19 20:31 56 L 24 176/82 H 06/26/19 20:30 53 L 19 06/26/19 20:01 59 L 21 180/87 H 06/26/19 20:00 63 23 06/26/19 19:31 56 L 23 181/75 H 06/26/19 19:30 68 25 H 06/26/19 19:05 59 L 59 L 16 154/83 H 06/26/19 19:00 60 14 06/26/19 18:30 61 17 06/26/19 18:29 37.3 C 81 18 185/95 H 06/26/19 18:18 65 22 06/26/19 18:17 66 20 185/95 H BP Pulse Ox 06/27/19 11:51 168/75 H 97 06/27/19 07:24 97 06/27/19 03:28 98 06/27/19 00:33 06/26/19 23:39 159/80 H 97 06/26/19 21:47 06/26/19 21:44 176/66 H 98 06/26/19 21:01 98 06/26/19 21:00 165/86 H 97 06/26/19 20:31 95 06/26/19 20:30 95 06/26/19 20:01 96 06/26/19 20:00 95 06/26/19 19:31 97 06/26/19 19:30 95 06/26/19 19:05 154/83 H 96 06/26/19 19:00 92 06/26/19 18:30 94 06/26/19 18:29 96 06/26/19 18:18 97 06/26/19 18:17 97 Cardiovascular + murmur Respiratory normal respiratory effort, lungs clear to auscultation Pre-Sedation Airway Assessment Smoking Status: Former smoker Mallampati Class: III ASA: ASA3 NPO Status Date of Last Intake of Fluids: 06/27/19 Time of Last Intake of Fluids: 11:30 Date of Last Intake of Solid Food: 06/27/19 Time of Last Intake of Solid Foods: 11:30 Procedure Planning Contraindications for Sedation: none Current Medications Reviewed: Yes Notes The planned sedation has been discussed with the patient. Informed Consent was obtained. I have identified the patient, determined the appropriateness of sedation and have assessed the patient immediately prior to the procedure. All medicine(s) and interventions are by my order.
[2019-06-27] MEDS ORDERED: methylPREDNISolone 125 MG in SYRINGE 0 ML IV ONE (14:30)
[2019-06-27] MEDS ORDERED: AMLODIPINE BESYLATE 5 MG TAB PO STA (14:49)
--- NOTE | 2019-06-27 15:27 | Cardiac Catheterization ---
[facility] Data: Automatic Machine Attendant Cardiac Status Clinical evaluation leading to the procedure CAD Presenation: Unstable angina Anginal Classification: CCS III Heart Failure: No Cardiogenic Shock within 24 Hours: No Cardiac Arrest within 24 Hours: No Imaging Studies Past 6 Months: Yes Stress Studies Past 6 Months: No Standard Exercise Test: No Stress Echocardiogram: No Stress Testing w/SPECT MPI: No Cardiac CTA: No Coronary Anatomy Dominant: Right Left Ventricular Angiography EF (%): n/a Diagnostic Physicians Name: Devante Rodriguez MD Status: Elective Closure Device Percutaneous Entry Location: Radial Closure Device: Radial Band Recommendations: Medical Therapy and/or Counseling Cardiac Cath Procedure Full Procedure Date June 27, 2019 Pre-Procedure Diagnosis Pre-Procedure Diagnosis: Angina AUC Score AUC Score: 7 Post-Procedure Diagnosis Post-Procedure Diagnosis: Moderate CAD Procedure(s) Performed Procedure(s) Performed: Coronary Angiography and Left Heart Cath Demand Manager Devante Rodriguez MD Fiber Analyst(s) Connie Knowles Estimated Blood Loss Estimated Blood Loss: < 25 ml Medication(s) Medication(s): Diphenhydramine (for IV dye allergy), Fentanyl, Heparin, Lidocaine 1% and Nicardipine Summary of Findings Procedures: 1. Coronary angiography 2. Left heart catheterization Coronary angiography: 1. Left main coronary: LMCA is a large-caliber vessel without significant CAD. 2. Left anterior descending: LAD is a large-caliber vessel that extends to the apex. Proximal LAD 10 to 20%. Mid LAD 10%. Small D1, D2, and D3 vessels. 3. Circumflex: The circumflex is a large-caliber vessel. Mid circumflex 50 to 70% at trifurcation of OM1, OM 2, and remainder of circumflex. This appears similar to prior cath in 2011. GUSTABO-3 flow. 4. Right coronary artery: The RCA is large and dominant. Distal RCA 30 to 40%. PDA, PL [address] 2 without significant CAD. Left heart catheterization: 1. Left ventriculography was not performed. 2. No significant aortic stenosis. 3. Elevated LVEDP; 19 mmHg. Procedural notes: 1. For IV dye allergy, Benadryl 25 mg IV and Solu-Medrol 125 mg IV were given. 2. Sedation was offered but declined. 3. Coronary angiography of the LMCA was completed with JL4 6 Japanese diagnostic catheter. Angiography of the RCA was completed with 6 Japanese JR4 diagnostic catheter. Impression: 1. Moderate to severe CAD involving mid circumflex at trifurcation of OM1, OM 2. 2. Otherwise, mild nonobstructive CAD of LAD and RCA. 3. Mildly elevated LVEDP. 4. No aortic stenosis. 5. Comparing current images with prior cath in 2011, circumflex stenosis appears similar. Given that this lesion is at a trifurcation of branch vessels, medical therapy recommended. If she fails medical therapy, consideration of FFR/PCI could be undertaken. Plan: 1 Optimize medical therapy. 2. Optimize blood pressure control. 3. Consider low-dose diuretic such as HCTZ given elevated filling pressures. Hemodynamics Rest Ao:: 153/54 Final Ao: 159/57 LV: 152/3/19 Recommendations Recommendations: Medical Therapy and/or Counseling Specimens Specimens: None Radiation Exposure (mGy) 752 mGy. Fluoro time 4.9 min. Contrast (mls) 60 ml Procedural Complication(s) None Disposition PCU I attest to the content of the Intraoperative Record and any orders documented therein. Any exceptions are noted below. [facility] Card Cath Procedure Codes Cardiac Catheterization Procedure 1: Cardiovascular Cath Procedures: 08741 Coronaries and LHC (+/-LV) PG Care Time/CCT Total # of Minutes Spent Total Time Spent with Patient: Total time spent is greater than 50% in coordination of care (as documented) at patient's floor/unit and/or counseling patient:
[2019-06-27] MEDS ORDERED: SODIUM CHLORIDE 0.9% 1000ML 1,000 ML IV SCH (15:30)
[2019-06-27] MEDS ORDERED: FUROSEMIDE 20 MG in SYRINGE 0 ML IV ONE (15:45)
[2019-06-27] MEDS ORDERED: POTASSIUM CHLORIDE 20 MEQ TABCR PO STA (16:09)
[2019-06-27] MEDS ORDERED: ATORVASTATIN 40 MG TAB PO SCH (21:00)
--- NOTE | 2019-06-27 23:43 | Hospitalist Progress Note ---
Date of Service June 27, 2019 Assessment & Plan (1) Near syncope: The patient presents with an episode of near syncope, more likely of cardiogenic source. (2) Unstable angina: Unstable angina/CAD/hypertension/history of cardiomyopathy- The patient had a cardiac cath completed. Impression below. Impression: 1. Moderate to severe CAD involving mid circumflex at trifurcation of OM1, OM 2. 2. Otherwise, mild nonobstructive CAD of LAD and RCA. 3. Mildly elevated LVEDP. 4. No aortic stenosis. 5. Comparing current images with prior cath in 2010, circumflex stenosis appears similar. Given that this lesion is at a trifurcation of branch vessels, medical therapy recommended. If she fails medical therapy, consideration of FFR/PCI could be undertaken. Plan: 1 Optimize medical therapy. 2. Optimize blood pressure control. 3. Consider low-dose diuretic such as HCTZ given elevated filling pressures. Continue metoprolol succinate 50 mg daily, losartan 100 mg daily and aspirin 81 mg daily. (3) CAD (coronary artery disease): See above (4) History of myocardial infarction: See above (5) Dyslipidemia: Reported as a diagnosis but on no specific medications. Check a fasting lipid panel. Start high-dose statin atorvastatin 40 mg daily. (6) Rheumatoid arthritis: Continue prednisone 5 mg p.o. daily. Will not place on stress dose steroids at this time. Subjective 83 yo female reports feeling well. Patient has no new complaints. Review of Systems Review of Systems: The patient denies chest palpitations, cough, lower extremity swelling, sore throat, fevers, chills, sweats, vomiting, diarrhea , constipation, abdominal pain, pelvic pain, blood in urine or stool, dysuria, urinary frequency or urgency, lightheadedness, dizziness, headache, memory loss, loss of consciousness, rash, abnormal bruising or bleeding, imbalance, focal or generalized weakness, numbness or tingling in arms or legs, generalized arthralgias or myalgias, back or neck pain, or night sweats. The review of systems is otherwise negative other than for that already noted above, and at least 10 systems have been reviewed. Physical Exam Physical Exam: The patient is awake, alert and oriented 3, well developed and well nourished, normocephalic and atraumatic, lying in bed and in no acute distress. HEENT--PERRL, EOMI, mucous membranes and oropharynx dry. Neck--supple. No JVD. No bruits. Thyroid normal, trachea midline, no adenopathy. Heart--normal S1 and S2. No murmurs, rubs or gallops. Lungs--clear bilaterally, no respiratory distress, no accessory muscle use. Abdomen--normal bowel sounds and soft. Nontender. Nondistended. Extremities--no cyanosis or clubbing. No edema. There are good distal pulses b/l. Dermatologic--normal skin turgor, normal color, no abnormal lymph nodes, no rash. Neurologic--cranial nerves II through XII grossly intact. Rheumatologic--normal range of motion. Psychiatric--normal affect. Results & Data Vital Signs (Past 12 Hours) Vital Signs Temp Pulse Resp BP Pulse Ox 06/27/19 19:08 36.6 C 80 18 163/78 H 92 06/27/19 18:42 80 16 132/74 94 06/27/19 17:42 73 16 132/76 94 06/27/19 16:42 80 16 164/74 H 92 06/27/19 16:12 69 16 151/74 H 92 06/27/19 15:42 62 16 149/70 H 92 06/27/19 15:27 60 18 152/75 H 94 06/27/19 15:15 64 16 152/72 H 96 06/27/19 15:10 66 16 146/74 H 96 06/27/19 15:05 65 16 143/67 H 95 06/27/19 11:51 37.4 C 58 L 18 168/75 H 97 PG Care Time/CCT Total # of Minutes Spent Total Time Spent with Patient: Total time spent is greater than 50% in coordination of care (as documented) at patient's floor/unit and/or counseling patient: (1) CAD (coronary artery disease) Associated angina: with stable angina Coronary Disease-Associated Juanita ry/Lesion type: unspecified vessel or lesion type [place] vs. transplanted heart: [place] heart Qualified Code(s): I25.118 - Atherosclerotic heart disease of [place] coronary artery with other forms of angina pectoris
[2019-06-28] MEDS: RESTASIS~ORDER AWAITING ACTION SCH ×2 (01:16→07:57)
[2019-06-28 07:12] LABS: Hematocrit (blood only) 40.6 % (37-47); Hemoglobin 13.5 g/dL (12.0-16.0); Immature Granulocytes # (auto) 0.02 K/uL (0.00-0.02); Immature Granulocytes % (auto) 0.2 %; Lymphocytes # (auto) 0.68 K/uL (1.2-3.4); Mean Corpuscular Hemoglobin 30.9 pg (25-34); Mean Corpuscular Hgb Conc 33.3 g/dL (32-36); Mean Corpuscular Volume 92.9 fL (80-100); Mean Platelet Volume 11.3 fL (7.4-10.4); Monocytes # (auto) 0.57 K/uL (0.11-0.59); Monocytes % (auto) 5.9 %; Neutrophils # (auto) 8.47 K/uL (1.4-6.5); Neutrophils % (auto) 86.9 %; Platelet Count 200 K/uL (130-400); RDW Coefficient of Variation 14.3 % (11.5-14.5); Red Blood Count 4.37 M/uL (4.2-5.4); White Blood Count 9.74 K/uL (4.8-10.8)
[2019-06-28 07:21] LABS: INR 1.1 (0.9-1.1); Prothrombin Time 11.2 Seconds (9.0-12.0)
[2019-06-28 07:48] LABS: Albumin Level 3.8 gm/dl (3.4-5.0); Calcium 8.9 mg/dl (8.5-10.1); Est GFR (African American) 84.7; Est GFR (Non-African American) 73.1; Potassium 3.7 mmol/L (3.5-5.1)
[2019-06-28 07:51] LABS: Albumin Globulin Ratio 1.4 (0.9-2); Bilirubin,Total 1.1 mg/dl (0.2-1); Globulin 2.7 gm/dl (2.5-4.0); Total Protein 6.5 gm/dl (6.4-8.2)
[2019-06-28] MEDS: METOPROLOL SUCC 50MG EXT REL TAB PO SCH (07:58)
[2019-06-28] MEDS: ASPIRIN 81 MG ECTAB PO SCH (07:58)
[2019-06-28] MEDS: MULTIVITAMIN TAB PO SCH (07:58)
[2019-06-28] MEDS: LOSARTAN POTASSIUM 50 MG TAB PO SCH (07:58)
[2019-06-28] MEDS: ASCORBIC ACID 500 MG TAB PO SCH (07:59)
[2019-06-28] MEDS: PSYLLIUM 58.6% POWDER PACKET PO SCH (07:59)
[2019-06-28] MEDS: LACTOBACILLUS ACIDOPHILUS (FLORANEX) TAB PO SCH (07:59)
[2019-06-28] MEDS: predniSONE 5 MG TAB PO SCH (07:59)
[2019-06-28] MEDS ORDERED: AMLODIPINE BESYLATE 5 MG TAB PO SCH (09:00)
[2019-06-28] MEDS ORDERED: hydroCHLOROthiazide 25 MG TAB PO STA (09:09)
--- NOTE | 2019-07-02 22:07 | Discharge Summary ---
Date of Service June 28, 2019 Admission HPI Per Admitting Provider The patient is an 83-year-old female with a past medical history including CAD,history of [place],hypertension, cardiomyopathy, dyslipidemia, diastolic heart dysfunction, rheumatoid arthritis and varicose veins of bilateral lower extremities. She and her friends report that about 1 month ago she began to experience fatigue, then about 2 days ago she started experiencing some chest discomfort, which today progressed to more significant chest pain about 1 and half hours prior to arrival at the ED. She has not had any recent travels or sick exposures. She has not been more less active than usual. She also reports episodes of intermittent nausea over the past few days as well. Principal Diagnosis chest pain Discharge Exam The patient is awake, alert and oriented 3, well developed and well nourished, normocephalic and atraumatic, lying in bed and in no acute distress. HEENT--PERRL, EOMI, mucous membranes and oropharynx dry. Neck--supple. No JVD. No bruits. Thyroid normal, trachea midline, no adenopathy. Heart--normal S1 and S2. No murmurs, rubs or gallops. Lungs--clear bilaterally, no respiratory distress, no accessory muscle use. Abdomen--normal bowel sounds and soft. Nontender. Nondistended. Extremities--no cyanosis or clubbing. No edema. There are good distal pulses b/l. Dermatologic--normal skin turgor, normal color, no abnormal lymph nodes, no rash. Neurologic--cranial nerves II through XII grossly intact. Rheumatologic--normal range of motion. Psychiatric--normal affect. Discharge Data Allergies Allergy/AdvReac Type Severity Reaction Status Date / Time latex Allergy Severe ANAPHYLAXIS Verified 04/13/19 10:41 Penicillins Allergy Severe ANAPHYLAXIS Verified 04/13/19 10:41 shellfish derived Allergy Severe ANAPHYLAXIS Verified 04/13/19 10:41 codeine AdvReac Mild Confusion Verified 06/27/19 11:18 meloxicam AdvReac Mild Confusion Verified 06/27/19 11:20 morphine AdvReac Confusion Unverified 06/26/19 21:00 Acetaminophen CAPS Allergy Unknown Uncoded 06/26/19 21:00 Iodine SOLN Allergy Unknown Uncoded 06/26/19 21:00 Consultations 06/26/19 19:24 ED Decision to Admit Stat 06/26/19 22:01 Consult Case Management - Discharge Planning Routine 06/27/19 10:36 Consult Cardiology Routine Procedures Performed Operation Date: 06/27/19 14:30 Actual Procedures s Cineradiography w/Routine Exam - Devante Rodriguez MD p Cath, Left with Cors and Vent - Devante Rodriguez MD Ordered Studies 06/27/19 14:16 CL Cath Imgs for PACS use only Stat Hospital Course (1) Near syncope: The patient presents with an episode of near syncope, more likely of cardiogenic source. (2) Unstable angina: Unstable angina/CAD/hypertension/history of cardiomyopathy- The patient had a cardiac cath completed. Impression below. Impression: 1. Moderate to severe CAD involving mid circumflex at trifurcation of OM1, OM 2. 2. Otherwise, mild nonobstructive CAD of LAD and RCA. 3. Mildly elevated LVEDP. 4. No aortic stenosis. 5. Comparing current images with prior cath in 2010, circumflex stenosis appears similar. Given that this lesion is at a trifurcation of branch vessels, medical therapy recommended. If she fails medical therapy, consideration of FFR/PCI could be undertaken. Plan: 1 Optimize medical therapy. 2. Optimize blood pressure control. 3. Consider low-dose diuretic such as HCTZ given elevated filling pressures. Continue metoprolol succinate 50 mg daily, losartan 100 mg daily and aspirin 81 mg daily. Clinically improved on discharge. Added hctz and amlodipine at discharge (3) CAD (coronary artery disease): See above (4) History of myocardial infarction: See above (5) Dyslipidemia: Reported as a diagnosis but on no specific medications. Check a fasting lipid panel. Start high-dose statin atorvastatin 40 mg daily. (6) Rheumatoid arthritis: Continue prednisone 5 mg p.o. daily. Will not place on stress dose steroids at this time. Total Time Total Time Spent Total Time Spent (In Minutes): 32 Total Time Includes: Examination of the Patient, Discharge Planning and Medication Reconciliation Discharge Plan Discharge Items Patient Disposition: Home - Self-Care Reason For Visit: UNSTABLE ANGINA Discharge Diagnosis: Unstable angina Activity: Resume your previous activity Non-emergency contact: Primary Care Provider Call non-emergency contact if: you have any medication questions Follow-up/Referrals: Elif Reyes DO [Primary Care Provider] - Diet: Heart Healthy Addtl Attending Provider Instructions: Start Amlodipine on 06/29 in the evening. ACTIVITY RECOMMENDATIONS: Excess manipulation of the wrist should be avoided for the next 24-48 hours. * No lifting over 2 pounds (approximately a 1/2 gallon of milk) with the utilized arm for 24 hours. * No strenuous activity such as bowling or tennis for 3 days. * Keep the site of the procedure covered with a bandage for 24 hours. *You may shower the day after the procedure. Do not take a tub bath or submerge the puncture site in water for the next 3 days. *Do not operate any motorized equipment for 3 days. SPECIAL CARE INSTRUCTIONS: The site may be slightly bruised and sore following your procedure. Should any of the following occur, contact the Dr. who performed your procedure. 1. Redness/inflammation, swelling, chills, or fever, or colored drainage at procedure site within 3-7 days after your procedure. 2. Coldness, discoloration, ongoing numbness, severe pain, or swelling. Expect mild tingling of hand and tenderness at the puncture site for up to three days. If this persists beyond three days, or other symptoms develop, notify the Dr. who performed your procedure. BLEEDING: If the procedure site on your wrist begins to bleed, do not panic 1. Place 1 or 2 fingers firmly just slightly above the insertion site to stop the bleeding. You may be able to feel your pulse as you hold pressure. 2. Lift your finger after 5 minutes to see if the bleeding has stopped. 3. Once the bleeding has stopped, gently wipe the wrist area clean with a bandage. * If the bleeding from your wrist does not stop after 10 minutes, or if there is a large amount of bleeding or spurting, call 911 (do not drive yourself to the hospital). SKIN IRRITATION: * You may experience some redness and/or swelling in the area where radiation was administered. If any skin irritation occurs, please contact your family physician. FOLLOW UP VISIT: Keep any scheduled doctor appointments. Pending Studies at Discharge: No Stand-Alone Forms: My [place], Smoking Cessation Medications and DC Order Prescriptions: New atorvastatin 40 mg Tablet 40 mg PO HS Qty: 30 RF: 0 amlodipine [Norvasc] 5 mg Tablet 5 mg PO HS Qty: 30 RF: 0 hydrochlorothiazide 12.5 mg tablet 12.5 mg PO DAILY Qty: 30 RF: 0 Continued metoprolol succinate 50 mg tablet extended release 24 hr 50 mg PO DAILY Qty: 90 RF: 1 losartan 100 mg tablet 100 mg PO DAILY Qty: 90 RF: 3 prednisone 5 mg tablet 5 mg PO DAILY Qty: 90 RF: 1 aspirin [Adult Low Dose Aspirin] 81 mg tablet,delayed release (DR/EC) 81 mg PO DAILY Qty: 30 RF: 2 multivitamin capsule 1 cap PO DAILY Qty: 30 RF: 0 loratadine 10 mg tablet 10 mg PO DAILY PRN (Reason: Allergy Symptoms) RF: 0 Restasis 0.05 % Dropperette 1 drp OPB Q12H RF: 0 Metamucil 3.4 gram/5.4 gram Powder 1 tbsp PO BID RF: 0 Probiotic 3 billion cell Capsule 3,000 mmu cells PO DAILY RF: 0 ascorbic acid (vitamin C) 500 mg Capsule 500 mg PO DAILY RF: 0 Discharge Orders: Discharge Order (Routine); Ordered 06/28/19 Ordered By: Lacho Dorado Admission Data Admit Date/Time: 06/26/19 20:41 Attending Provider: Lacho Dorado Admit Provider: Manoj Gant Primary Care Provider: Elif Reyes Other Providers: Manoj Gant ; Devante Rodriguez Other Interventions: Discharge Summary Assessment (RN) Last Done: 06/28/19 09:34 DC Date/Time DO NOT enter until pt leaves facility: 06/28/19 10:45
== END 2019-06-28 10:45 | disposition home or self-care (01) | DRG 287 ==
LOC: ED 18:09 → SUATTDRO 20:41 → 2S 20:41

== ENCOUNTER 2021-08-28 08:59 | Inpatient (IN) ==
[2021-08-28] MEDS ORDERED: ONDANSETRON INJ 2 MG/ML 2 ML VIAL IV STA (09:26)
[2021-08-28] MEDS ORDERED: PANTOprazole 40 MG in SYRINGE 0 ML IV ONE ×2 (09:26→14:00)
[2021-08-28] MEDS ORDERED: ACETAMINOPHEN 1,000 MG/100 ML VIAL IV STA (09:26)
[2021-08-28] MEDS ORDERED: SODIUM CHLORIDE 0.9% 500 ML IV ONE (09:31)
--- NOTE | 2021-08-28 10:00 | XRay Report ---
XR chest 1V portable HISTORY: Generalized abdominal pain. COMPARISON: Chest 06/26/2019. FINDINGS: No focal lung consolidations to suggest pneumonia. No evidence for pulmonary edema. The hea rt remains mildly enlarged. Calcifications within the aortic knob. There is a mildly tortuous thoraci c aorta. Degenerative changes within the right shoulder persist. IMPRESSION: Mild cardiomegaly. Otherwise, no acute process within the chest. ACT 112: Negative or not required by law. Electronically signed by: Willian Guerra M.D. 08/28/2021 9:59 AM
[2021-08-28 10:02] LABS: Basophils # (auto) 0.01 K/uL (0-0.2); Basophils % (auto) 0.2 %; Eosinophils # (auto) 0.03 K/uL (0-0.5); Eosinophils % (auto) 0.5 %; Hematocrit (blood only) 32.5 % (37-47); Hemoglobin 11.1 g/dL (12.0-16.0); Lymphocytes # (auto) 0.55 K/uL (1.2-3.4); Lymphocytes % (auto) 9.5 %; Mean Corpuscular Hemoglobin 31.4 pg (25-34); Mean Corpuscular Hgb Conc 34.2 g/dL (32-36); Mean Corpuscular Volume 92.1 fL (80-100); Mean Platelet Volume 11.3 fL (7.4-10.4); Monocytes % (auto) 13.7 %; Neutrophils # (auto) 4.43 K/uL (1.4-6.5); Neutrophils % (auto) 76.1 %; Platelet Count 148 K/uL (130-400); RDW Standard Deviation 51.1 fL (36.4-46.3); Red Blood Count 3.53 M/uL (4.2-5.4); White Blood Count 5.82 K/uL (4.8-10.8)
--- NOTE | 2021-08-28 10:20 | CT Scan Report ---
CT SCAN OF THE ABDOMEN AND PELVIS WITHOUT IV CONTRAST CLINICAL HISTORY: Generalized abdominal pain. Nausea and vomiting. Melena. COMPARISON STUDY: No priors. TECHNIQUE: CT scan of the abdomen and pelvis is performed from the lung bases to the proximal femora. Images are reviewed in the axial, sagittal, and coronal planes. IV contrast was not administered for this examination. Note that the examination was performed in significantly suboptimal fashion withou t oral and IV contrast. A dose lowering technique was utilized adhering to the principles of ALARA. CT DOSE: 269.21 mGy.cm FINDINGS: Lung bases: The heart is enlarged noting trace pericardial effusion. The coronary arteries are densel y calcified. Calcified right hilar nodes are partially imaged. There is a small hiatal hernia. There is bibasilar scarring/atelectasis. A fat-containing Bochdalek hernia is noted at the right lung base. There are scattered calcified granulomas. No airspace consolidation or pleural effusion is seen. Liver: The unenhanced liver is normal in size, contour, and attenuation. There is no intrahepatic blayne iary ductal dilatation. Scattered hepatic cysts measure up to 2.6 cm. Calcified granuloma is seen in the right lobe. Gallbladder: Unremarkable. Spleen: Normal in size and attenuation. Pancreas: Unremarkable. Adrenal glands: Unremarkable. Kidneys: The unenhanced kidneys demonstrate mild cortical atrophy and are without hydronephrosis. The re are no renal calculi identified. A 1.6 cm simple cyst is noted in the right upper pole. A 0.9 cm c omplex/hyperdense cyst is noted on the left. Abdominal vasculature: The abdominal aorta is normal in course and caliber noting advanced atheroscle rotic calcification. Bowel: Question wall thickening of the stomach with mild surrounding infiltration. There is moderate colonic diverticulosis without CT evidence of acute diverticulitis. No bowel obstruction is seen. The appendix is well-visualized and normal. Peritoneum: No intraperitoneal free air is identified. There is trace free fluid in the pelvis. There is a fat-containing umbilical hernia. A midline surgical scar is noted. Lymphadenopathy: None. Pelvic viscera: The bladder is normal as visualized. The uterus is surgically absent. No adnexal lesi on is seen. Skeletal structures: The skeletal structures are osteopenic. There is moderate lumbosacral spondylosi s and scoliosis. There are healed left-sided rib fractures. Large hemangiomas are noted in the bodies of T8, T9, and L1. No lytic or blastic lesions are seen. IMPRESSION: 1. Suboptimal examination without oral and IV contrast 2. Question wall thickening with mild surrounding infiltration involving the stomach. Correlate clini tee for evidence of gastritis or possibly ulcer disease. This is not well evaluated by CT and could be further assessed with endoscopy if clinically warranted. 3. Cardiomegaly. 4. Moderate colonic diverticulosis without CT evidence of acute diverticulitis. 5. Additional findings as above. ACT 112: Negative or not required by law. Electronically signed by: Jose Ridley M.D. 08/28/2021 10:19 AM
[2021-08-28 10:36] LABS: Troponin I 0.03 ng/ml (0-0.04)
[2021-08-28 10:43] LABS: Albumin Globulin Ratio 1.7 (0.9-2); Albumin Level 3.5 gm/dl (3.4-5.0); BUN Creatinine Ratio 32.2 (10-20); Bilirubin,Total 1.9 mg/dl (0.2-1.0); Creatinine Clr Calc Pharmacy 59.2 ml/min; Est GFR (African American) 97.5 ml/min; Est GFR (Non-African American) 84.2 ml/min; Globulin 2.1 gm/dl (2.5-4.0); Magnesium 1.8 mg/dl (1.7-2.4); Phosphorus 2.6 mg/dl (2.5-4.9); Potassium 3.1 mmol/L (3.5-5.1); Total Protein 5.6 gm/dl (6.0-8.3)
--- NOTE | 2021-08-28 11:31 | Electrocardiogram Report ---
Test Reason : Blood Pressure : / mmHG Vent. Rate : 057 BPM Atrial Rate : 057 BPM P-R Int : 230 ms QRS Dur : 142 ms QT Int : 492 ms P-R-T Axes : 074 -34 -08 degrees QTc Int : 478 ms Poor data quality, interpretation may be adversely affected Sinus bradycardia with 1st degree A-V block Left axis deviation Right bundle branch block Moderate voltage criteria for LVH, may be normal variant Nonspecific ST abnormality Abnormal ECG When compared with ECG of 28-AUG-2021 09:43, (unconfirmed) No significant change was found Confirmed by Amilcar Nesbitt ([id number]) on 08/28/2021 11:31:08 AM Referred By: REFERRED SELF Confirmed By:Johann Nesbitt
[2021-08-28] MEDS ORDERED: LACTATED RINGER'S 500 ML IV ONE (12:47)
--- NOTE | 2021-08-28 13:13 | Emergency Department Note ---
Impression & Plan Acute upper GI bleed, History of melena, Anemia, Hypokalemia ED Provider Note NAME: JOSIAH MCDOWELL AGE: 85 SEX: F ARRIVES VIA: Ambulance INFORMANT:Patient ED PROVIDER(S): Piotr Marin MD CHIEF COMPLAINT: Nausea, vomiting, black diarrhea PLAN: Disposition: Admit MEDICAL DECISION MAKING: The patient is a pleasant 85-year-old woman with a pmhx of CAD, HTN, HLD, CM, Diastolic dysfunction who presents to the emergency department for evaluation of nausea and vomiting with diarrhea that she describes as black and large-volume. Patient reports that she initially began with nausea last night and developed vomiting and then had black diarrhea this morning that she describes as a faucet. She denies any Pepto-Bismol use or iron supplements. She takes a baby aspirin but denies anticoagulation. She is vaccinated for COVID-19 including her booster and denies any known COVID-19 exposures. She denies any fevers, chills, cough, congestion, urinary symptoms. On arrival the patient is uncomfortable but no acute distress, afebrile stable vital signs. She has mild mid abdominal discomfort without discrete tenderness. There is no guarding or rebound. Rectal exam demonstrates melena without gross blood/hemorrhage, Hemoccult positive. EKG without overt acute ischemia. CXR negative for acute cardiopulmonary process. WBC and platelets the normal limits. H/H 11.1/32.5 down from 12.7/38.2 a year ago. Chemistry without metabolic acidosis. Potassium 3.1. BUN is 19. Total bilirubin 1.9, proximate to prior range of values. LFTs otherwise unremarkable. Troponin 0.03, within normal limits. Lipase is not elevated. COVID-19 RNA, KATELYNN test is negative. CT of the abdomen pelvis was performed and demonstrates findings consistent with gastritis versus PUD. Patient was treated with IV fluid hydration, Protonix and Zofran and did feel some improvement. She agrees with plan for admission for further observation and management. The patient was consented for blood if it were to be needed however given she is hemodynamically stable without gross hemorrhage will defer this at this time. Dr. Mays, [facility] hospitalist to evaluate the patient for admission. Triage Nursing notes reviewed and agree them. Prior medical records reviewed Vital Signs: reviewed and remarkable for no significant abnormalities Differential diagnosis: Diverticulosis, AVM, coagulopathy, colitis, inflammatory bowel disease, malignancy, Viktoria-Goldsmith tear, esophagitis, peptic ulcer disease, variceal bleed, gastritis, epistaxis, fissure, hemorrhoids, as well as other pathologies. ER treatment provided: See below. Diagnostics interpreted by me: ECG: Sinus bradycardia, 57 bpm, no ectopy, first-degree AV block, right bundle branch block, LVH, nonspecific ST abnormality, no overt ST elevation or depression, QTC 470, QRS 142., Similar to prior. Cardiac Monitoring: An order for continuous cardiac monitoring was placed and demonstrated Sinus bradycardia, 57 bpm, no ectopy Laboratory studies: See below Imaging studies: See below Consultation(s): Dr. Mays, [facility] [place] hospitalist to evaluate the patient for admission. HPI: The patient is a pleasant 85-year-old woman with a pmhx of CAD, HTN, HLD, CM, Diastolic dysfunction who presents to the emergency department for evaluation of nausea and vomiting with diarrhea that she describes as black and large-volume. Patient reports that she initially began with nausea last night and developed vomiting and then had black diarrhea this morning that she describes as a faucet. She denies any Pepto-Bismol use or iron supplements. She takes a baby aspirin but denies anticoagulation. She is vaccinated for COVID-19 including her booster and denies any known COVID-19 exposures. She denies any fevers, chills, cough, congestion, urinary symptoms. ROS: See above HPI for pertinent positives & negatives. A total of 10 systems reviewed and were otherwise negative. PAST MEDICAL HISTORY:See Below PAST SURGICAL HISTORY:See Below FAMILY HISTORY:See Below SOCIAL HISTORY:See Below HOME MEDICATIONS:See Below ALLERGIES:See Below VITALS:See Below PHYSICAL EXAMINATION: GENERAL: Awake, alert, fatigued-appearing, in no distress HENT: Normocephalic, atraumatic. Oropharynx unremarkable. EYES: Normal conjunctiva. Sclera non-icteric. NECK: Supple. No nuchal rigidity. FROM. No JVD. RESPIRATORY: Clear to auscultation. CARDIAC: Regular rate, normal rhythm. Extremities warm and well perfused. Pulses equal. ABDOMEN: Soft, non-distended. Mild mid abdominal discomfort without discrete tenderness. No rebound or guarding. No masses. RECTAL: Melena present. No gross blood or hemorrhage, Hemoccult positive. MUSCULOSKELETAL: Chest examination reveals no tenderness. The back is symmetr ical on inspection without obvious abnormality. There is no CVA tenderness to palpation. No joint edema. LOWER EXTREMITIES: Calves are equal size bilaterally and non-tender. No edema. No discoloration. NEURO: Normal sensorium. No sensory or motor deficits noted. SKIN: No rash or jaundice noted. 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) Vaginal enterocele Varicose veins of bilateral lower extremities with pain Varicose veins of both lower extremities Vulvar atrophy Surgical History History of arthroscopy of knee Left knee History of bladder suspension procedure History of cataract surgery History of total abdominal hysterectomy with removal of both ovaries S/P coronary artery stent placement Angioplasty and stenting, 1990 and 2010 Status post left foot surgery Family History Grandmother Myocardial infarction Unknown Type 1 neurofibromatosis Denies family history of Ovarian cancer Prostate cancer Breast cancer Colorectal cancer Social History Smoking Status: Never smoker Age Started Using Tobacco: 11; Age Quit Using Tobacco: 34; packs per day: 5; Years Smoked: 23; Number of Years Since Quit: 55; Second Hand Exposure: No; Hx Alcohol Use: No Hx Substance Use: No Preferred Language: Micronesian Communication Ability: Effective Visual Impairment: No Limitations Hearing Ability: Normal Electrician Third Required: No Beliefs That Will Affect Care: None marital status: / Current Living Situation: Alone Current Living Situation Comment: alone, in [facility] current occupational status: retired How many Children do You have: 5 Feels Safe at Home: Yes Safety Concerns: Feels Safe At This Time Childhood Exposure to Second-Hand Smoke: Yes caffeine: Yes (Green tea x 4 per day) during the past year weight has: remained stable Dental Care, Regularly: Yes Physical Activity Frequency: Daily Seatbelt Use: always Sunscreen Use: Yes Assistive Devices: None Allergies Allergies Allergy/AdvReac Type Severity Reaction Status Date / Time latex Allergy Severe ANAPHYLAXIS Verified 08/28/21 11:08 Penicillins Allergy Severe ANAPHYLAXIS Verified 08/28/21 11:08 shellfish derived Allergy Severe ANAPHYLAXIS Verified 08/28/21 11:08 codeine AdvReac Mild Confusion Verified 08/28/21 11:08 meloxicam AdvReac Mild Confusion Verified 08/28/21 11:08 morphine AdvReac Confusion Unverified 08/28/21 11:08 Acetaminophen CAPS Allergy Unknown Uncoded 08/28/21 11:08 Iodine SOLN Allergy Unknown Uncoded 08/28/21 11:08 Home Meds Home Medications Medication Instructions Recorded Confirmed ascorbic acid (vitamin C) 500 mg 500 mg PO DAILY 06/26/19 08/28/21 capsule cyclosporine 0.05 % eye drops in a 1 drp OPB BID ea 12/14/19 08/28/21 dropperette (Restasis) psyllium seed (sugar) oral powder 1 tbsp PO DAILY 09/20/20 08/28/21 (Metamucil (sugar)) Previous Rx's Medication Instructions Recorded aspirin 81 mg tablet,delayed 81 mg PO DAILY #30 tab 01/03/19 release (Adult Low Dose Aspirin) multivitamin 1 cap PO DAILY #30 cap 01/03/19 cholecalciferol (vitamin D3) 50 50 mcg PO DAILY #30 cap 04/12/20 mcg (2,000 unit) capsule amlodipine 5 mg tablet (Norvasc) 5 mg PO HS #90 tab 01/09/21 atorvastatin 40 mg tablet 40 mg PO QPM #90 tab 01/09/21 prednisone 2.5 mg tablet 2.5 mg PO DAILY #30 tab 02/06/21 losartan 100 mg tablet 100 mg PO DAILY #90 tab 04/14/21 denosumab 60 mg/mL subcutaneous 60 mg SUBCUT .every 6 months #1 ml 05/01/21 syringe (Prolia) hydrochlorothiazide 25 mg tablet 25 mg PO DAILY #90 tab 05/05/21 metoprolol succinate 50 mg 50 mg PO DAILY #90 tab 06/06/21 tablet,extended release 24 hr Results & Data (ED) Vital Signs Vital Signs - 24 hr 08/28/21 09:04 08/28/21 09:27 08/28/21 11:00 Temperature 36.7 C Temperature Source Oral Pulse Rate 58 L Pulse Rate [Apical] 55 L Pulse Rhythm [Apical] Pulse Strength [Apical] Respiratory Rate 21 12 Respiratory Effort / Characteristics Non-Labored Spontaneous Non-Labored Spontaneous Respiratory Depth Normal Normal Blood Pressure 136/59 L Blood Pressure [Right Arm] 94/47 L Blood Pressure Mean 84 Blood Pressure Mean [Right Arm] 62 Pulse Oximetry 96 99 Oxygen Delivery Method Room Air Room Air Room Air Sepsis Recent Fever Within 48 Hours No Sepsis New/Unexplained Change in Mental Status No Sepsis Action Taken by Nursing No Action Required 08/28/21 11:30 08/28/21 13:00 Temperature Temperature Source Pulse Rate Pulse Rate [Apical] 49 L 50 L Pulse Rhythm [Apical] Regular Pulse Strength [Apical] Normal Respiratory Rate 16 18 Respiratory Effort / Characteristics Non-Labored Spontaneous Non-Labored Spontaneous Respiratory Depth Normal Normal Blood Pressure Blood Pressure [Right Arm] 94/47 L 112/44 L Blood Pressure Mean Blood Pressure Mean [Right Arm] 62 66 Pulse Oximetry 95 98 Oxygen Delivery Method Room Air Room Air Sepsis Recent Fever Within 48 Hours Sepsis New/Unexplained Change in Mental Status Sepsis Action Taken by Nursing Laboratory Data Attestation: I reviewed the patient's lab results. Result diagrams: 08/28/21 20:14 08/28/21 09:42 Lab Results 08/28/21 08/28/21 08/28/21 Range/Units 09:42 09:42 09:42 WBC 5.82 (4.8-10.8) K/uL RBC 3.53 L (4.2-5.4) M/uL Hgb 11.1 L (12.0-16.0) g/dL Hct 32.5 L (37-47) % MCV 92.1 (80-100) fL MCH 31.4 (25-34) pg MCHC 34.2 (32-36) g/dL RDW Std Deviation 51.1 H (36.4-46.3) fL RDW Coeff of Delvin 15.0 H (11.5-14.5) % Plt Count 148 (130-400) K/uL MPV 11.3 H (7.4-10.4) fL Immature Gran % (Auto) 0.0 % Neut % (Auto) 76.1 % Lymph % (Auto) 9.5 % [place] % (Auto) 13.7 % Eos % (Auto) 0.5 % Baso % (Auto) 0.2 % Neut # (Auto) 4.43 (1.4-6.5) K/uL Lymph # (Auto) 0.55 L (1.2-3.4) K/uL [place] # (Auto) 0.80 H (0.11-0.59) K/uL Eos # (Auto) 0.03 (0-0.5) K/uL Baso # (Auto) 0.01 (0-0.2) K/uL Immature Gran # (Auto) 0.00 (0.00-0.02) K/uL Sodium 132 L (136-145) mmol/L Potassium 3.1 L (3.5-5.1) mmol/L Chloride 99 (98-107) mmol/L Carbon Dioxide 26 (21-32) mmol/L Anion Gap 7 (3-11) BUN 19 (6-23) mg/dl Creatinine 0.59 L (0.6-1.2) mg/dl Est Cr Clr Drug Dosing 59.2 ml/min Est GFR ( Amer) 97.5 ml/min Est GFR (Non-Af Amer) 84.2 ml/min BUN/Creatinine Ratio 32.2 H (10-20) Glucose 87 (70-99(Fasting)) mg/dl Calcium 8.0 L (8.5-10.1) mg/dl Phosphorus 2.6 (2.5-4.9) mg/dl Magnesium 1.8 (1.7-2.4) mg/dl Total Bilirubin 1.9 H (0.2-1.0) mg/dl AST 36 (13-39) U/L ALT 31 (7-52) U/L Alkaline Phosphatase 28 L (34-104) U/L Troponin I 0.03 (0-0.04) ng/ml Total Protein 5.6 L (6.0-8.3) gm/dl Albumin 3.5 (3.4-5.0) gm/dl Globulin 2.1 L (2.5-4.0) gm/dl Albumin/Globulin Ratio 1.7 (0.9-2) Lipase 9 L (11-82) U/L SARS-CoV-2, RNA, NAAT NEGATIVE (NEGATIVE) Blood Type Antibody Screen 08/28/21 Range/Units 11:56 WBC (4.8-10.8) K/uL RBC (4.2-5.4) M/uL Hgb (12.0-16.0) g/dL Hct (37-47) % MCV (80-100) fL MCH (25-34) pg MCHC (32-36) g/dL RDW Std Deviation (36.4-46.3) fL RDW Coeff of Delvin (11.5-14.5) % Plt Count (130-400) K/uL MPV (7.4-10.4) fL Immature Gran % (Auto) % Neut % (Auto) % Lymph % (Auto) % [place] % (Auto) % Eos % (Auto) % Baso % (Auto) % Neut # (Auto) (1.4-6.5) K/uL Lymph # (Auto) (1.2-3.4) K/uL [place] # (Auto) (0.11-0.59) K/uL Eos # (Auto) (0-0.5) K/uL Baso # (Auto) (0-0.2) K/uL Immature Gran # (Auto) (0.00-0.02) K/uL Sodium (136-145) mmol/L Potassium (3.5-5.1) mmol/L Chloride (98-107) mmol/L Carbon Dioxide (21-32) mmol/L Anion Gap (3-11) BUN (6-23) mg/dl Creatinine (0.6-1.2) mg/dl Est Cr Clr Drug Dosing ml/min Est GFR ( Amer) ml/min Est GFR (Non-Af Amer) ml/min BUN/Creatinine Ratio (10-20) Glucose (70-99(Fasting)) mg/dl Calcium (8.5-10.1) mg/dl Phosphorus (2.5-4.9) mg/dl Magnesium (1.7-2.4) mg/dl Total Bilirubin (0.2-1.0) mg/dl AST (13-39) U/L ALT (7-52) U/L Alkaline Phosphatase (34-104) U/L Troponin I (0-0.04) ng/ml Total Protein (6.0-8.3) gm/dl Albumin (3.4-5.0) gm/dl Globulin (2.5-4.0) gm/dl Albumin/Globulin Ratio (0.9-2) Lipase (11-82) U/L SARS-CoV-2, RNA, NAAT (NEGATIVE) Blood Type O Negative Antibody Screen NEGATIVE Administered Medications Atorvastatin Calcium (Atorvastatin 40 Mg Tab) 40 mg PO QPM DOLLY Stop: 09/27/21 20:59 Last Admin: 08/28/21 19:40 Dose: 40 mg Documented by: [id number] Pantoprazole Sodium 40 mg/ (Dextrose) 100 mls @ 20 mls/hr IV Q5H DOLLY Stop: 09/27/21 14:04 Last Admin: 08/28/21 19:40 Dose: 8 mg/hr, 20 mls/hr Documented by: [id number] Infusion: 08/28/21 19:39 Dose: 8 mg/hr, 20 mls/hr Documented by: [id number] Admin: 08/28/21 14:39 Dose: 8 mg/hr, 20 mls/hr Documented by: [id number] Lactated Ringer's (Lr) 1,000 mls @ 100 mls/hr IV .Q10H DOLLY Stop: 09/27/21 19:59 Last Admin: 08/28/21 22:46 Dose: 100 mls/hr Documented by: [id number] Discontinued Medications Pantoprazole Sodium 40 mg/ (Syringe) 10 mls @ 5 mls/min IV NOW ONE Stop: 08/28/21 09:27 Last Admin: 08/28/21 10:13 Dose: 5 mls/min Documented by: [id number] Acetaminophen (Ofirmev) 1,000 mg in 100 mls @ 400 mls/hr IV NOW STA Stop: 08/28/21 09:40 Last Infusion: 08/28/21 10:06 Dose: 0 mls/hr Documented by: [id number] Admin: 08/28/21 09:51 Dose: 400 mls/hr Documented by: [id number] Sodium Chloride (Nss) 500 mls @ 999 mls/hr IV .Q31M ONE Stop: 08/28/21 10:01 Last Infusion: 08/28/21 10:25 Dose: 0 mls/hr Documented by: [id number] Admin: 08/28/21 09:50 Dose: 999 mls/hr Documented by: [id number] Lactated Ringer's (Lr) 500 mls @ 999 mls/hr IV .Q31M ONE Stop: 08/28/21 13:17 Last Infusion: 08/28/21 13:46 Dose: 0 mls/hr Documented by: [id number] Admin: 08/28/21 12:53 Dose: 999 mls/hr Documented by: [id number] Pantoprazole Sodium 40 mg/ (Syringe) 10 mls @ 5 mls/min IV ONE ONE Stop: 08/28/21 14:01 Last Admin: 08/28/21 14:47 Dose: 5 mls/min Documented by: [id number] Potassium Chloride (K Og / Wtr) 10 meq in 100 mls @ 100 mls/hr IV Q1H DOLLY; Protocol Stop: 08/28/21 15:59 Last Infusion: 08/28/21 17:33 Dose: 0 mls/hr Documented by: [id number] Admin: 08/28/21 16:53 Dose: 100 mls/hr Documented by: [id number] Infusion: 08/28/21 15:54 Dose: 0 mls/hr Documented by: [id number] Admin: 08/28/21 14:49 Dose: 100 mls/hr Documented by: [id number] Ondansetron HCl (Ondansetron Inj 2 Mg/Ml 2 Ml Vial) 4 mg IV NOW STA Stop: 08/28/21 09:27 Last Admin: 08/28/21 09:51 Dose: 4 mg Documented by: [id number] Imaging Data Radiologist's Impression: Abdomen/Pelvis CT 08/28/21 09:26 CT SCAN OF THE ABDOMEN AND PELVIS WITHOUT IV CONTRAST CLINICAL HISTORY: Generalized abdominal pain. Nausea and vomiting. Melena. COMPARISON STUDY: No priors. TECHNIQUE: CT scan of the abdomen and pelvis is performed from the lung bases to the proximal femora. Images are reviewed in the axial, sagittal, and coronal planes. IV contrast was not administered for this examination. Note that the examination was performed in significantly suboptimal fashion without oral and IV contrast. A dose lowering technique was utilized adhering to the principles of ALARA. CT DOSE: 269.21 mGy.cm FINDINGS: Lung bases: The heart is enlarged noting trace pericardial effusion. The coronary arteries are densely calcified. Calcified right hilar nodes are partially imaged. There is a small hiatal hernia. There is bibasilar scarring/atelectasis. A fat-containing Bochdalek hernia is noted at the right lung base. There are scattered calcified granulomas. No airspace consolidation or pleural effusion is seen. Liver: The unenhanced liver is normal in size, contour, and attenuation. There is no intrahepatic biliary ductal dilatation. Scattered hepatic cysts measure up to 2.6 cm. Calcified granuloma is seen in the right lobe. Gallbladder: Unremarkable. Spleen: Normal in size and attenuation. Pancreas: Unremarkable. Adrenal glands: Unremarkable. Kidneys: The unenhanced kidneys demonstrate mild cortical atrophy and are without hydronephrosis. There are no renal calculi identified. A 1.6 cm simple cyst is noted in the right upper pole. A 0.9 cm complex/hyperdense cyst is noted on the left. Abdominal vasculature: The abdominal aorta is normal in course and caliber noting advanced atherosclerotic calcification. Bowel: Question wall thickening of the stomach with mild surrounding infiltration. There is moderate colonic diverticulosis without CT evidence of acute diverticulitis. No bowel obstruction is seen. The appendix is well- visualized and normal. Peritoneum: No intraperitoneal free air is identified. There is trace free fluid in the pelvis. There is a fat-containing umbilical hernia. A midline surgical scar is noted. Lymphadenopathy: None. Pelvic viscera: The bladder is normal as visualized. The uterus is surgically absent. No adnexal lesion is seen. Skeletal structures: The skeletal structures are osteopenic. There is moderate lumbosacral spondylosis and scoliosis. There are healed left-sided rib fractures. Large hemangiomas are noted in the bodies of T8, T9, and L1. No lytic or blastic lesions are seen. IMPRESSION: 1. Suboptimal examination without oral and IV contrast 2. Question wall thickening with mild surrounding infiltration involving the stomach. Correlate clinically for evidence of gastritis or possibly ulcer disease. This is not well evaluated by CT and could be further assessed with endoscopy if clinically warranted. 3. Cardiomegaly. 4. Moderate colonic diverticulosis without CT evidence of acute diverticulitis. 5. Additional findings as above. ACT 112: Negative or not required by law. Electronically signed by: Jose Ridley M.D. 08/28/2021 10:19 AM Chest X-Ray 08/28/21 09:30 XR chest 1V portable HISTORY: Generalized abdominal pain. COMPARISON: Chest 06/26/2019. FINDINGS: No focal lung consolidations to suggest pneumonia. No evidence for pulmonary edema. The heart remains mildly enlarged. Calcifications within the aortic knob. There is a mildly tortuous thoracic aorta. Degenerative changes within the right shoulder persist. IMPRESSION: Mild cardiomegaly. Otherwise, no acute process within the chest. ACT 112: Negative or not required by law. Electronically signed by: Willian Geurra M.D. 08/28/2021 9:59 AM Discharge Plan Visit Data Chief Complaint: Abdominal Pain Stated Complaint: AB PAIN, VOMITING, BLACK TARRY STOOL, ED Provider: Piotr Marin Discharge Problem: Acute upper GI bleed, History of melena, Anemia, Hypokalemia Patient Disposition: Admitted As Inpatient Discharge Instructions Interventions: ED Discharge Assessment Last Done: 08/28/21 15:12 Discharge Problem: Anemia Qualifiers: Anemia type: unspecified type Qualified Code(s): D64.9 - Anemia, unspecified
--- NOTE | 2021-08-28 13:32 | History & Physical Report ---
Date of Service August 28, 2021 Assessment & Plan (1) Melena: Plan: Suspected acute GI bleed. Hgb 11.1 on admission, repeat now and then q6h. Transfuse < 9.0. Hold aspirin and prednisone Additional pantoprazole 40mg IV bolus then continue on IV drip Clear liquids today, NPO @ midnight Consult gastroenterology (2) Dysphagia: Plan: With solid food such as breads for last 2 months Consult GI to consider EGD (3) CAD (coronary artery disease): Plan: Non obstructive CAD Ok to hold aspirin Continue atorvastatin Holding all anti-hypertensives including metoprolol in setting of relative hypotension (4) HTN (hypertension): Plan: Holding all anti-hypertensives including metoprolol in setting of relative hypotension (5) Seronegative polyarthritis: Plan: Hold prednisone in setting of gastritis and suspected GI bleed Low threshold to restart this if having a flare (6) Mitral regurgitation: Plan: Noted murmur on exam with mild-mod MR on prior echo in 2019 (7) Rheumatoid arthritis: Plan: Prednisone as above Plan: VTE Prophylaxis - SCDs Diet - clear liquid today, NPO @ midnight Disposition - admit to med/tele Admission and Anticipated Discharge Date Admission Date: Aug 28, 2021 History of Present Illness Chief Complaint: Melena Primary Care Provider: Elif Reyes DO Phil Tristan is an 85 year old female who presents to the ER with nausea, vomiting and black stool. She reports no history of GI bleed, no NSAID use, change in diet, iron supplementation or pepto-bismol. She uses an aspirin daily for non- obstructive coronary artery disease and prednisone 2.5mg PO daily for rheumatoid arthritis. She does note dysphagia with bread-like textures for the last 2 months. She does have the occasional heartburn but doesn't require any regular medication for this. She started having nausea yesterday. This morning started having large amounts of black stool. In the ER hemoglobin 11.1 from prior baseline 12.7. She was given pantoprazole 40mg IV. She was mildly hypotensive and was given NSS 500ml bolus and LR 500ml bolus. BP 112/[address] A/P was concerning for wall thickening with mild surrounding infiltration involving the stomach. She was referred to medicine for admission and ongoing management of melena. Allergies Allergy/AdvReac Type Severity Reaction Status Date / Time latex Allergy Severe ANAPHYLAXIS Verified 08/28/21 11:08 Penicillins Allergy Severe ANAPHYLAXIS Verified 08/28/21 11:08 shellfish derived Allergy Severe ANAPHYLAXIS Verified 08/28/21 11:08 codeine AdvReac Mild Confusion Verified 08/28/21 11:08 meloxicam AdvReac Mild Confusion Verified 08/28/21 11:08 morphine AdvReac Confusion Unverified 08/28/21 11:08 Acetaminophen CAPS Allergy Unknown Uncoded 08/28/21 11:08 Iodine SOLN Allergy Unknown Uncoded 08/28/21 11:08 Home Medications Medication Instructions Recorded Confirmed Type aspirin 81 mg tablet,delayed 81 mg PO DAILY #30 tab 01/03/19 08/28/21 Rx release (Adult Low Dose Aspirin) multivitamin 1 cap PO DAILY #30 cap 01/03/19 08/28/21 Rx ascorbic acid (vitamin C) 500 mg 500 mg PO DAILY 06/26/19 08/28/21 History capsule cyclosporine 0.05 % eye drops in a 1 drp OPB BID ea 12/14/19 08/28/21 History dropperette (Restasis) cholecalciferol (vitamin D3) 50 50 mcg PO DAILY #30 cap 04/12/20 08/28/21 Rx mcg (2,000 unit) capsule psyllium seed (sugar) oral powder 1 tbsp PO DAILY 09/20/20 08/28/21 History (Metamucil (sugar)) amlodipine 5 mg tablet (Norvasc) 5 mg PO HS #90 tab 01/09/21 08/28/21 Rx atorvastatin 40 mg tablet 40 mg PO QPM #90 tab 01/09/21 08/28/21 Rx prednisone 2.5 mg tablet 2.5 mg PO DAILY #30 tab 02/06/21 08/28/21 Rx losartan 100 mg tablet 100 mg PO DAILY #90 tab 04/14/21 08/28/21 Rx denosumab 60 mg/mL subcutaneous 60 mg SUBCUT .every 6 months #1 ml 05/01/21 08/28/21 Rx syringe (Prolia) hydrochlorothiazide 25 mg tablet 25 mg PO DAILY #90 tab 05/05/21 08/28/21 Rx metoprolol succinate 50 mg 50 mg PO DAILY #90 tab 06/06/21 08/28/21 Rx tablet,extended release 24 hr Past Med/Surg History Medical History Allergic rhinitis Arthritis Benign paroxysmal positional vertigo CAD (coronary artery disease) Diastolic dysfunction Dyslipidemia History of cardiomyopathy (11/2010) Takotsubo History of myocardial infarction History of pneumonia HTN (hypertension) Mitral regurgitation Osteoarthritis Osteoporosis Rheumatoid arthritis 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) Vaginal enterocele Varicose veins of bilateral lower extremities with pain Varicose veins of both lower extremities Vulvar atrophy Surgical History History of arthroscopy of knee Left knee History of bladder suspension procedure History of cataract surgery History of total abdominal hysterectomy with removal of both ovaries S/P coronary artery stent placement Angioplasty and stenting, 1990 and 2010 Status post left foot surgery Family History Grandmother Myocardial infarction Unknown Type 1 neurofibromatosis Denies family history of Ovarian cancer Prostate cancer Breast cancer Colorectal cancer Social History Smoking Status: Never smoker Age Started Using Tobacco: 11; Age Quit Using Tobacco: 34; packs per day: 5; Years Smoked: 23; Number of Years Since Quit: 55; Second Hand Exposure: No; Hx Alcohol Use: No Hx Substance Use: No Preferred Language: Citizen Of [place] Communication Ability: Effective Visual Impairment: No Limitations Hearing Ability: Normal Homebound Teacher Required: No Beliefs That Will Affect Care: None marital status: / Current Living Situation: Alone Current Living Situation Comment: alone, in [facility] current occupational status: retired How many Children do You have: 5 Feels Safe at Home: Yes Safety Concerns: Feels Safe At This Time Childhood Exposure to Second-Hand Smoke: Yes caffeine: Yes (Green tea x 4 per day) during the past year weight has: remained stable Dental Care, Regularly: Yes Physical Activity Frequency: Daily Seatbelt Use: always Sunscreen Use: Yes Assistive Devices: None Review of Systems Review of Systems: All systems reviewed & are unremarkable except as noted in HPI & below Physical Exam Constitutional: WD/WN, vitals as above Eyes: + anicteric sclerae; no conjunctival abnormality and normal pupil size ENMT: external ear and nose normal, oropharynx normal Neck: trachea midline, no thyromegaly Respiratory: normal respiratory effort, lungs clear to auscultation Cardiovascular: RRR, no murmur, no edema Gastrointestinal (Abdomen): Inspection/Auscultation: normal bowel sounds Percussion/Palpation: + abdomen tender (epigastric) and abdomen soft; no guarding and abdomen not rigid Musculoskeletal: no cyanosis or clubbing, extremities motor strength 5/5 Skin: no rashes, warm and dry Neurologic: moves all extremities and awake; not confused Psychiatric: A+Ox3, euthymic affect Results & Data Results & [facility] ([facility]) Vital Signs (Past 12 Hours) Vital Signs Temp Pulse Pulse Resp BP BP Pulse Ox 08/28/21 11:30 49 L 16 94/47 L 95 08/28/21 11:00 55 L 12 94/47 L 99 08/28/21 09:04 36.7 C 58 L 21 136/59 L 96 Laboratory Results Abnormal lab results 08/28/21 08/28/21 Range/Units 09:42 09:42 RBC 3.53 L (4.2-5.4) M/uL Hgb 11.1 L (12.0-16.0) g/dL Hct 32.5 L (37-47) % RDW Std Deviation 51.1 H (36.4-46.3) fL RDW Coeff of Delvin 15.0 H (11.5-14.5) % MPV 11.3 H (7.4-10.4) fL Lymph # (Auto) 0.55 L (1.2-3.4) K/uL [place]ting[place] # (Auto) 0.80 H (0.11-0.59) K/uL Sodium 132 L (136-145) mmol/L Potassium 3.1 L (3.5-5.1) mmol/L Creatinine 0.59 L (0.6-1.2) mg/dl BUN/Creatinine Ratio 32.2 H (10-20) Calcium 8.0 L (8.5-10.1) mg/dl Total Bilirubin 1.9 H (0.2-1.0) mg/dl Alkaline Phosphatase 28 L (34-104) U/L Total Protein 5.6 L (6.0-8.3) gm/dl Globulin 2.1 L (2.5-4.0) gm/dl Lipase 9 L (11-82) U/L Diagnostic Findings XR chest 1V portable HISTORY: Generalized abdominal pain. COMPARISON: Chest 06/26/2019. FINDINGS: No focal lung consolidations to suggest pneumonia. No evidence for pulmonary edema. The heart remains mildly enlarged. Calcifications within the aortic knob. There is a mildly tortuous thoracic aorta. Degenerative changes within the right shoulder persist. IMPRESSION: Mild cardiomegaly. Otherwise, no acute process within the chest. CT SCAN OF THE ABDOMEN AND PELVIS WITHOUT IV CONTRAST CLINICAL HISTORY: Generalized abdominal pain. Nausea and vomiting. Melena. COMPARISON STUDY: No priors. TECHNIQUE: CT scan of the abdomen and pelvis is performed from the lung bases to the proximal femora. Images are reviewed in the axial, sagittal, and coronal planes. IV contrast was not administered for this examination. Note that the examination was performed in significantly suboptimal fashion without oral and IV contrast. A dose lowering technique was utilized adhering to the principles of ALARA. CT DOSE: 269.21 mGy.cm FINDINGS: Lung bases: The heart is enlarged noting trace pericardial effusion. The coronary arteries are densely calcified. Calcified right hilar nodes are partially imaged. There is a small hiatal hernia. There is bibasilar scarring/at electasis. A fat-containing Bochdalek hernia is noted at the right lung base. There are scattered calcified granulomas. No airspace consolidation or pleural effusion is seen. Liver: The unenhanced liver is normal in size, contour, and attenuation. There is no intrahepatic biliary ductal dilatation. Scattered hepatic cysts measure up to 2.6 cm. Calcified granuloma is seen in the right lobe. Gallbladder: Unremarkable. Spleen: Normal in size and attenuation. Pancreas: Unremarkable. Adrenal glands: Unremarkable. Kidneys: The unenhanced kidneys demonstrate mild cortical atrophy and are withou t hydronephrosis. There are no renal calculi identified. A 1.6 cm simple cyst is noted in the right upper pole. A 0.9 cm complex/hyperdense cyst is noted on the left. Abdominal vasculature: The abdominal aorta is normal in course and caliber noting advanced atherosclerotic calcification. Bowel: Question wall thickening of the stomach with mild surrounding infiltration. There is moderate colonic diverticulosis without CT evidence of acute diverticulitis. No bowel obstruction is seen. The appendix is well- visualized and normal. Peritoneum: No intraperitoneal free air is identified. There is trace free fluid in the pelvis. There is a fat-containing umbilical hernia. A midline surgical scar is noted. Lymphadenopathy: None. Pelvic viscera: The bladder is normal as visualized. The uterus is surgically absent. No adnexal lesion is seen. Skeletal structures: The skeletal structures are osteopenic. There is moderate lumbosacral spondylosis and scoliosis. There are healed left-sided rib f ractures. Large hemangiomas are noted in the bodies of T8, T9, and L1. No lytic or blastic lesions are seen. IMPRESSION: 1. Suboptimal examination without oral and IV contrast 2. Question wall thickening with mild surrounding infiltration involving the stomach. Correlate clinically for evidence of gastritis or possibly ulcer disease. This is not well evaluated by CT and could be further assessed with endoscopy if clinically warranted. 3. Cardiomegaly. 4. Moderate colonic diverticulosis without CT evidence of acute diverticulitis. 5. Additional findings as above. Medications Administered ER Medications Given: Pantoprazole 40mg IV Ondansetron 4mg IV Acetaminophen 1g IV NSS 500ml bolus LR 500ml bolus ECG Indication: abdominal pain Rate (beats per minute): 57 Rhythm: sinus bradycardia Findings: + 1st degree AV block, + RBBB and + left axis deviation Comparison ECG Date: from (Jun 28, 2019) Change: no significant change Code Status & VTE Plan Code Status Full VTE Prophylaxis Plan VTE Prophylaxis will be ordered: Yes Reason for no VTE drug order: Contraindicated PG Care Time/CCT Total # of Minutes Spent Total Time Spent with Patient: Total time spent is greater than 50% in coordination of care (as documented) at patient's floor/unit and/or counseling patient: Coding Level of Care Code 87726 Initial Inpt Care Lvl 2 Diagnoses Melena K92.1 Dysphagia R13.10 CAD (coronary artery disease) I25.118 Associated angina: with stable angina Coronary Disease-Associated Artery/Lesion type: unspecified vessel or lesion type [place] vs. transplanted heart: [place] heart HTN (hypertension) I10 Hypertension type: unspecified Seronegative polyarthritis M13.0 Mitral regurgitation I34.0 Rheumatoid arthritis M06.9 (1) CAD (coronary artery disease) Associated angina: with stable angina Coronary Disease-Associated Artery/Lesion type: unspecified vessel or lesion type [place] vs. transplanted heart: [place] heart Qualified Code(s): I25.118 - Atherosclerotic heart disease of [place] coronary artery with other forms of angina pectoris (2) HTN (hypertension) Hypertension type: unspecified Qualified Code(s): I10 - Essential (primary) hypertension
[2021-08-28 14:05] LABS: Hematocrit (blood only) 30.7 % (37-47); Hemoglobin 10.5 g/dL (12.0-16.0)
[2021-08-28] MEDS: PANTOprazole 40 MG in DEXTROSE 5% 100 ML IV SCH ×3 (14:39→23:22)
[2021-08-28] MEDS: POTASSIUM CHLORIDE / WTR 10 MEQ/100 ML PLCT IV SCH ×2 (14:49→16:53)
[2021-08-28 15:07] LABS: Appearance Urine Cloudy (Clear); Bacteria Urine Automated Negative (Negative); Bilirubin Urine Negative (Negative); Blood Urine Negative (Negative); Color Urine Yellow; Epithelial Cell Urine Auto 20-30 /lpf (0-5); Glucose Urine UA Negative (Negative); Ketones Urine 1+ (Negative); Leukocyte Esterase Urine Trace (Negative); Nitrite Urine Negative (Negative); Protein Urine Negative (Negative); RBC Urine Automated 0-4 /hpf (0-4); Specific Gravity Urine 1.019 (1.000-1.030); Urobilinogen Urine Negative (Negative); pH Urine 6.5 (4.5-7.5)
[2021-08-28] MEDS ORDERED: ACETAMINOPHEN 325 MG TAB PO PRN (15:58)
[2021-08-28] MEDS: ATORVASTATIN 40 MG TAB PO SCH (19:40)
[2021-08-28 20:32] LABS: Hematocrit (blood only) 30.6 % (37-47); Hemoglobin 10.4 g/dL (12.0-16.0)
[2021-08-28] MEDS: LACTATED RINGER'S 1,000 ML IV SCH (22:46)
[2021-08-29 02:15] LABS: Basophils # (auto) 0.01 K/uL (0-0.2); Basophils % (auto) 0.3 %; Eosinophils # (auto) 0.07 K/uL (0-0.5); Eosinophils % (auto) 2.1 %; Hematocrit (blood only) 29.9 % (37-47); Hemoglobin 10.3 g/dL (12.0-16.0); Lymphocytes # (auto) 0.57 K/uL (1.2-3.4); Lymphocytes % (auto) 16.8 %; Mean Corpuscular Hemoglobin 32.2 pg (25-34); Mean Corpuscular Hgb Conc 34.4 g/dL (32-36); Mean Corpuscular Volume 93.4 fL (80-100); Mean Platelet Volume 10.7 fL (7.4-10.4); Monocytes # (auto) 0.57 K/uL (0.11-0.59); Monocytes % (auto) 16.8 %; Neutrophils # (auto) 2.18 K/uL (1.4-6.5); Platelet Count 120 K/uL (130-400); RDW Coefficient of Variation 15.2 % (11.5-14.5); RDW Standard Deviation 52.2 fL (36.4-46.3)
[2021-08-29 02:35] LABS: Acanthocytes 1+; BUN Creatinine Ratio 24.5 (10-20); Calcium 7.5 mg/dl (8.5-10.1); Creatinine Clr Calc Pharmacy 71.3 ml/min; Est GFR (African American) 103.7 ml/min; Est GFR (Non-African American) 89.5 ml/min; Ovalocytes 1+; Potassium 2.9 mmol/L (3.5-5.1)
[2021-08-29] MEDS: PANTOprazole 40 MG in DEXTROSE 5% 100 ML IV SCH ×4 (04:14→19:45)
[2021-08-29] MEDS: LACTATED RINGER'S 1,000 ML IV SCH ×2 (06:08→18:00)
[2021-08-29 08:00] LABS: Hematocrit (blood only) 31.1 % (37-47); Hemoglobin 10.5 g/dL (12.0-16.0)
[2021-08-29] MEDS: CHOLECALCIFEROL 1,000 UNITS 25 MCG TAB PO SCH (08:44)
[2021-08-29] MEDS: POTASSIUM CHLORIDE / WTR 10 MEQ/100 ML PLCT IV SCH ×6 (09:39→17:03)
--- NOTE | 2021-08-29 10:30 | Gastrointestinal Consultation ---
Date of Consultation August 29, 2021 Assessment & Plan (1) Anemia: (2) Melena: (3) Dysphagia: -Continue Protonix drip for now -Keep NPO for EGD today for further evaluation -Treatment of hypokalemia per primary team -Continue to monitor H/H Supervising Physician Co-Signing Physician Notes Agree with BRIDGER Fong as above Abd: Soft, NT, ND, +BS Continue current therapy and supportive care Recommend EGD now for further evaluation History of Present Illness Reason for Consultation: Dysphagia, melena Attending Physician: John Garcia MD History of Present Illness Patient is an 85 yo male with PMH chronic venous insufficiency, varicose veins, SCCIS, urinary incontinence, CAD, HTN, osteoporosis, osteoarthritis, seronegative polyarthritis, mitral regurgitation, HLD, diastolic dysfunction, & RA who presented to the ED at [facility] due to significant melena. She notes that over the past several weeks she has noticed a pressure sensation in the epigastric region. She notes she feels gas trapping and issues with belching. She reports that she is not taking any NSAIDs. She has occasional heartburn & reflux, but does not take medications for this. She reports that she typically "just tries to accept that she is 85 and being pain-free is unrealistic" but when she developed significant melena that she reports filled the toilet. She notes that she recognized that the dark substance was blood because she remembers something similar happening to her son who had liver cancer. This prompted her to seek evaluation. In the ED she had a CT scan that indicated gastritis vs PUD. H/H is presently 10.5/31.1. Patient is on an IV Protonix drip and has not had further melena since initiation of this. She also reports ongoing dysphagia with solids & liquids for the past several months. She does not have a smoking history. Allergies Allergy/AdvReac Type Severity Reaction Status Date / Time latex Allergy Severe ANAPHYLAXIS Verified 08/28/21 11:08 Penicillins Allergy Severe ANAPHYLAXIS Verified 08/28/21 11:08 shellfish derived Allergy Severe ANAPHYLAXIS Verified 08/28/21 11:08 codeine AdvReac Mild Confusion Verified 08/28/21 11:08 meloxicam AdvReac Mild Confusion Verified 08/28/21 11:08 morphine AdvReac Confusion Unverified 08/28/21 11:08 Acetaminophen CAPS Allergy Unknown Uncoded 08/28/21 11:08 Iodine SOLN Allergy Unknown Uncoded 08/28/21 11:08 Home Medications Medication Instructions Recorded Confirmed Type aspirin 81 mg tablet,delayed 81 mg PO DAILY #30 tab 01/03/19 08/28/21 Rx release (Adult Low Dose Aspirin) multivitamin 1 cap PO DAILY #30 cap 01/03/19 08/28/21 Rx ascorbic acid (vitamin C) 500 mg 500 mg PO DAILY 06/26/19 08/28/21 History capsule cyclosporine 0.05 % eye drops in a 1 drp OPB BID ea 12/14/19 08/28/21 History dropperette (Restasis) cholecalciferol (vitamin D3) 50 50 mcg PO DAILY #30 cap 04/12/20 08/28/21 Rx mcg (2,000 unit) capsule psyllium seed (sugar) oral powder 1 tbsp PO DAILY 09/20/20 08/28/21 History (Metamucil (sugar)) amlodipine 5 mg tablet (Norvasc) 5 mg PO HS #90 tab 01/09/21 08/28/21 Rx atorvastatin 40 mg tablet 40 mg PO QPM #90 tab 01/09/21 08/28/21 Rx prednisone 2.5 mg tablet 2.5 mg PO DAILY #30 tab 02/06/21 08/28/21 Rx losartan 100 mg tablet 100 mg PO DAILY #90 tab 04/14/21 08/28/21 Rx denosumab 60 mg/mL subcutaneous 60 mg SUBCUT .every 6 months #1 ml 05/01/21 08/28/21 Rx syringe (Prolia) hydrochlorothiazide 25 mg tablet 25 mg PO DAILY #90 tab 05/05/21 08/28/21 Rx metoprolol succinate 50 mg 50 mg PO DAILY #90 tab 06/06/21 08/28/21 Rx tablet,extended release 24 hr Patient History Medical History (Updated 08/29/21 @ 11:49 by Chris Murray MD) Allergic rhinitis Arthritis Benign paroxysmal positional vertigo CAD (coronary artery disease) Diastolic dysfunction Dyslipidemia Encounter for pre-operative examination History of cardiomyopathy (11/2010) Takotsubo History of myocardial infarction History of pneumonia HTN (hypertension) Mitral regurgitation Osteoarthritis Osteoporosis Rheumatoid arthritis 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) Vaginal enterocele Varicose veins of bilateral lower extremities with pain Varicose veins of both lower extremities Vulvar atrophy Surgical History History of arthroscopy of knee Left knee History of bladder suspension procedure History of cataract surgery History of total abdominal hysterectomy with removal of both ovaries S/P coronary artery stent placement Angioplasty and stenting, 1990 and 2010 Status post left foot surgery Family History Grandmother Myocardial infarction Unknown Type 1 neurofibromatosis Denies family history of Ovarian cancer Prostate cancer Breast cancer Colorectal cancer Social History Smoking Status: Never smoker Age Started Using Tobacco: 11; Age Quit Using Tobacco: 34; packs per day: 5; Years Smoked: 23; Number of Years Since Quit: 55; Second Hand Exposure: No; Hx Alcohol Use: No Hx Substance Use: No Preferred Language: Urdu Communication Ability: Effective Visual Impairment: No Limitations Hearing Ability: Normal Dairy Associate Required: No Beliefs That Will Affect Care: None marital status: / Current Living Situation: Alone Current Living Situation Comment: alone, in [facility] current occupational status: retired How many Children do You have: 5 Feels Safe at Home: Yes Safety Concerns: Feels Safe At This Time Childhood Exposure to Second-Hand Smoke: Yes caffeine: Yes (Green tea x 4 per day) during the past year weight has: remained stable Dental Care, Regularly: Yes Physical Activity Frequency: Daily Seatbelt Use: always Sunscreen Use: Yes Assistive Devices: None Review of Systems Constitutional: no fever and no chills Respiratory: no cough and no dyspnea Cardiovascular: no chest pain Gastrointestinal: + abdominal pain (epigastric), + belching, + heartburn, + dysphagia and + melena; no coffee ground emesis Musculoskeletal: + joint pain Integumentary: no problem reported Psychiatric: no problem reported Hematologic / Lymphatic: no unexplained weight loss Physical Exam Constitutional: well developed Neck: normal visual inspection Respiratory: normal respiratory effort Cardiovascular: Rate/Rhythm: regular rate and regular rhythm Gastrointestinal (Abdomen): Inspection/Auscultation: abdomen normal to inspection and normal bowel sounds Percussion/Palpation: abdomen soft; abdomen nontender Musculoskeletal: Head/Neck/Chest: normocephalic Neurologic: Speech / Cognition: normal speech Psychiatric: Orientation: alert and oriented x 3 Results & Data ([facility]) Vital Signs (Past 12 Hours) Vital Signs Temp Pulse Pulse Pulse Resp BP BP 08/29/21 09:53 56 L 08/29/21 07:18 36.8 C 60 18 128/57 L 08/29/21 04:09 37.0 C 57 L 18 124/57 L 08/28/21 23:14 37.0 C 52 L 18 114/57 L Pulse Ox 08/29/21 09:53 08/29/21 07:18 95 08/29/21 04:09 93 08/28/21 23:14 93 PG Care Time/CCT Total # of Minutes Spent Total Time Spent with Patient: Total time spent is greater than 50% in coordination of care (as documented) at patient's floor/unit and/or counseling patient: Coding Level of Care Code 55995 Initial Inpt Care Lvl 3 Diagnoses Anemia D64.9 Anemia type: unspecified type Melena K92.1 Dysphagia R13.10 (1) Anemia Anemia type: unspecified type Qualified Code(s): D64.9 - Anemia, unspecified
--- NOTE | 2021-08-29 11:44 | Anesthesiology Consultation ---
Date of Service August 29, 2021 Assessment & Plan (1) Encounter for pre-operative examination: Chart Review Chart Review: Acceptable Risk for Surgery, Patient NOT seen in Pre Admission Testing and medical charge entry specialist initiated Consults Requested none ASA ASA3 Proposed Anesthesia Anesthesia Type: MAC Risk / Benefits Reviewed With: PT / POA / Parent / Guardian, Accepts Plan and Informed Consent Obtained History Surgery Operation Date: 08/29/21 17:10 Proposed Procedures p Esophagogastroduodenoscopy Dr Dillon - Victor Manuel Louise Case, DO Height/Weight Height: 5 ft 1 in Weight: 60.4 kg Allergies Allergy/AdvReac Type Severity Reaction Status Date / Time latex Allergy Severe ANAPHYLAXIS Verified 08/28/21 11:08 Penicillins Allergy Severe ANAPHYLAXIS Verified 08/28/21 11:08 shellfish derived Allergy Severe ANAPHYLAXIS Verified 08/28/21 11:08 codeine AdvReac Mild Confusion Verified 08/28/21 11:08 meloxicam AdvReac Mild Confusion Verified 08/28/21 11:08 morphine AdvReac Confusion Unverified 08/28/21 11:08 Acetaminophen CAPS Allergy Unknown Uncoded 08/28/21 11:08 Iodine SOLN Allergy Unknown Uncoded 08/28/21 11:08 Medications Home Medications Medication Instructions Recorded Confirmed Last Taken aspirin 81 mg tablet,delayed 81 mg PO DAILY #30 tab 01/03/19 08/28/21 Unknown release (Adult Low Dose Aspirin) multivitamin 1 cap PO DAILY #30 cap 01/03/19 08/28/21 Unknown ascorbic acid (vitamin C) 500 mg 500 mg PO DAILY 06/26/19 08/28/21 Unknown capsule cyclosporine 0.05 % eye drops in a 1 drp OPB BID ea 12/14/19 08/28/21 Unknown dropperette (Restasis) cholecalciferol (vitamin D3) 50 50 mcg PO DAILY #30 cap 04/12/20 08/28/21 Unknown mcg (2,000 unit) capsule psyllium seed (sugar) oral powder 1 tbsp PO DAILY 09/20/20 08/28/21 Unknown (Metamucil (sugar)) amlodipine 5 mg tablet (Norvasc) 5 mg PO HS #90 tab 01/09/21 08/28/21 Unknown atorvastatin 40 mg tablet 40 mg PO QPM #90 tab 01/09/21 08/28/21 Unknown prednisone 2.5 mg tablet 2.5 mg PO DAILY #30 tab 02/06/21 08/28/21 Unknown losartan 100 mg tablet 100 mg PO DAILY #90 tab 04/14/21 08/28/21 Unknown denosumab 60 mg/mL subcutaneous 60 mg SUBCUT .every 6 months #1 ml 05/01/21 08/28/21 Unknown syringe (Prolia) hydrochlorothiazide 25 mg tablet 25 mg PO DAILY #90 tab 05/05/21 08/28/21 Unknown metoprolol succinate 50 mg 50 mg PO DAILY #90 tab 06/06/21 08/28/21 Unknown tablet,extended release 24 hr Active Medications Generic Name Dose Route Start Last Admin Trade Name Freq PRN Reason Stop Dose Admin Atorvastatin Calcium 40 mg 08/28/21 21:00 08/28/21 19:40 Atorvastatin 40 Mg Tab PO 09/27/21 20:59 40 mg QPM DOLLY Administration Pantoprazole Sodium 40 mg/ 100 mls @ 20 mls/hr 08/28/21 14:05 08/29/21 09:16 Dextrose IV 09/27/21 14:04 8 mg/hr Q5H DOLLY 20 mls/hr Administration 8 MG/HR Lactated Ringer's 1,000 mls @ 100 mls/hr 08/28/21 20:00 08/29/21 06:08 Lr IV 09/27/21 19:59 100 mls/hr .Q10H DOLLY Administration Potassium Chloride 10 meq in 100 mls @ 100 mls/hr 08/29/21 09:30 08/29/21 11:39 K Og / Wtr IV 08/29/21 15:29 100 mls/hr Q1H DOLLY Administration Protocol Vitamin D 2,000 units 08/29/21 09:00 08/29/21 08:44 Cholecalciferol 1,000 Units 25 Mcg Tab PO 09/28/21 08:59 2,000 units DAILY DOLLY Administration Past Medical History Medical History (Updated 08/29/21 @ 11:49 by Chris Murray MD) Allergic rhinitis Arthritis Benign paroxysmal positional vertigo CAD (coronary artery disease) Diastolic dysfunction Dyslipidemia Encounter for pre-operative examination History of cardiomyopathy (11/2010) Takotsubo History of myocardial infarction History of pneumonia HTN (hypertension) Mitral regurgitation Osteoarthritis Osteoporosis Rheumatoid arthritis 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) Vaginal enterocele Varicose veins of bilateral lower extremities with pain Varicose veins of both lower extremities Vulvar atrophy Exercise / Class Metabolic Activity II 4-5 Yardwork/Stairs/Walk up hill Past Family History Family History Grandmother Myocardial infarction Unknown Type 1 neurofibromatosis Denies family history of Ovarian cancer Prostate cancer Breast cancer Colorectal cancer Past Surgical History Surgical History History of arthroscopy of knee Left knee History of bladder suspension procedure History of cataract surgery History of total abdominal hysterectomy with removal of both ovaries S/P coronary artery stent placement Angioplasty and stenting, 1990 and 2010 Status post left foot surgery Past Anesthesia History No Hx of Anesthesia Complications and No Family Hx of Anesthesia Complications History of PONV No Hx of PONV and No Hx of Motion Sickness Social History Smoking Status: Never smoker tobacco type: cigarettes Hx Alcohol Use: No Hx Substance Use: No substance use type: does not use Physical Exam Vital Signs Last Vital Signs Temp 36.9 C 08/29/21 11:10 Pulse 62 08/29/21 11:10 Resp 18 08/29/21 11:10 BP 134/68 08/29/21 11:10 Pulse Ox 94 08/29/21 11:10 ENMT Mouth: + dentures and + edentulous Thyromental Distance: > or= 3.5 Finger Breadths Mallampati Class: II Neck normal visual inspection and trachea midline; neck extension not limited Respiratory normal respiratory effort; no respiratory distress Auscultation: lungs clear to auscultation bilaterally; no crackles, no rhonchi and no wheezes Cardiovascular Rate/Rhythm: regular rate and regular rhythm Heart Sounds: + murmur; no gallop and no cardiac rub Neurologic moves all extremities and awake Psychiatric Orientation: alert Testing Laboratory Results 08/29/21 07:31 08/29/21 01:59 Urine Color Yellow 08/28/21 14:50 Urine Appearance Cloudy (Clear) A 08/28/21 14:50 Urine pH 6.5 (4.5-7.5) 08/28/21 14:[address] 1.019 (1.000-1.030) 08/28/21 14:50 Urine Protein Negative (Negative) 08/28/21 14:50 Urine Glucose (UA) Negative (Negative) 08/28/21 14:50 Urine Ketones 1+ (Negative) H 08/28/21 14:50 Urine Nitrite Negative (Negative) 08/28/21 14:50 Ur Leukocyte Esterase Trace (Negative) H 08/28/21 14:50 Urine WBC (Auto) 1-5 /hpf (0-5) 08/28/21 14:50 Urine RBC (Auto) 0-4 /hpf (0-4) 08/28/21 14:50 U Hyaline Cast (Auto) 1-5 /lpf (0-5) 08/28/21 14:50 U Epithel Cells (Auto) 20-30 /lpf (0-5) H 08/28/21 14:50 Urine Bacteria (Auto) Negative (Negative) 08/28/21 14:50 Blood Type O Negative 08/28/21 11:56 Antibody Screen NEGATIVE 08/28/21 11:56 Electrocardiogram Date: 08/28/21 Findings: + LVH, + NSST changes, + SB @ (57 with sinus arrhythmia) and + RBBB Chest X-Ray Date: 08/28/21 Findings: + cardiomegaly (O/W NAD)
[2021-08-29] MEDS ORDERED: PROPOFOL IV EMULSION 10 MG/ML 20 ML VIAL IV ONE (12:15)
[2021-08-29] MEDS ORDERED: LIDOCAINE 2% 2 ML VIAL/AMP(20MG/ML) INFIL ONE (12:15)
--- NOTE | 2021-08-29 12:44 | GI REPORT ---
Patient Name: Phil Tristan Procedure Date: 08/29/2021 12:12 PM Date of : 1935 Admit Type: Inpatient Age: 85 Gender: Female Attending MD: Victor Manuel Dillon DO Procedure: Upper GI endoscopy Providers: Victor Manuel Dillon DO Referring MD: John Garcia MD Indications: Melena Medicines: Monitored Anesthesia Care Complications: No immediate complications. Estimated Blood Loss: Estimated blood loss: none. Procedure: Pre-Anesthesia Assessment: - Prior to the procedure, a History and Physical was performed, and patient medications and allergies were reviewed. The patient's tolerance of previous anesthesia was also reviewed. The risks and benefits of the procedure and the sedation options and risks were discussed with the patient. All questions were answered, and informed consent was obtained. Prior Anticoagulants: The patient has taken no previous anticoagulant or antiplatelet agents except for aspirin. ASA Grade Assessment: III - A patient with severe systemic disease. After reviewing the risks and benefits, the patient was deemed in satisfactory condition to undergo the procedure. After obtaining informed consent, the endoscope was passed under direct vision. Throughout the procedure, the patient's blood pressure, pulse, and oxygen saturations were monitored continuously. The Endoscope was introduced through the mouth, and advanced to the second part of duodenum. The upper GI endoscopy was accomplished without difficulty. The patient tolerated the procedure well. Findings: LA Grade C (one or more mucosal breaks continuous between tops of 2 or more mucosal folds, less than 75% circumference) esophagitis with no bleeding was found 34 to 39 cm from the incisors. A 10 mm non-bleeding Viktoria-Goldsmith tear with stigmata of recent bleeding was found. For hemostasis, one hemostatic clip was successfully placed (MR conditional). There was no bleeding at the end of the procedure. The examined duodenum was normal. Impression: - LA Grade C reflux esophagitis. - Viktoria-Goldsmith tear. Clip (MR conditional) was placed. - Normal examined duodenum. - No specimens collected. Recommendation: - Return patient to [facility] for ongoing care. - Advance diet as tolerated. - Continue present medications. Victor Manuel Dillon DO 08/29/2021 12:44:09 PM This report has been signed electronically. Note Initiated On: 08/29/2021 12:12 PM Number of Addenda: 0 I attest to the content of the Intraoperative Record and orders documented therein, exceptions below {[id number]}
--- NOTE | 2021-08-29 12:57 | Anesthesiology Progress Note ---
Date of Service August 29, 2021 Anesthesia Post Procedure Vital Signs Vital Signs: Temp Pulse Pulse Pulse Resp BP BP 08/29/21 12:46 61 20 127/67 08/29/21 12:32 65 20 108/53 L 08/29/21 11:32 36.8 C 59 L 20 150/65 H 08/29/21 11:10 36.9 C 62 18 134/68 08/29/21 09:53 56 L 08/29/21 07:18 36.8 C 60 18 128/57 L 08/29/21 04:09 37.0 C 57 L 18 124/57 L 08/28/21 23:14 37.0 C 52 L 18 114/57 L 08/28/21 18:35 36.6 C 55 L 20 108/68 08/28/21 16:07 36.6 C 52 L 18 112/68 08/28/21 15:00 49 L 18 104/44 L 08/28/21 13:00 50 L 18 112/44 L Pulse Ox 08/29/21 12:46 96 08/29/21 12:32 97 08/29/21 11:32 96 08/29/21 11:10 94 08/29/21 09:53 08/29/21 07:18 95 08/29/21 04:09 93 08/28/21 23:14 93 08/28/21 18:35 95 08/28/21 16:07 97 08/28/21 15:00 98 08/28/21 13:00 98 Pain Intensity Lower Abdomen: Pain Intensity: 7 Transfer of Care Handoff Completed per policy Notes Mental Status: alert / awake / arousable and participated in evaluation Patient Amnestic to Procedure: Yes Nausea / Vomiting: adequately controlled Pain: adequately controlled Airway Patency, RR, SpO2: stable & adequate BP & HR: stable & adequate Hydration State: stable & adequate Anesthetic Complications: no major complications apparent and Pt Satisfied with anesthetic care
[2021-08-29 14:10] LABS: Hematocrit (blood only) 35.9 % (37-47); Hemoglobin 11.8 g/dL (12.0-16.0)
--- NOTE | 2021-08-29 14:45 | Hospitalist Progress Note ---
Date of Service August 29, 2021 Assessment & Plan (1) Melena: Plan: Melena, upper GI bleed Patient was infected acute GI bleed on admission, hemoglobin 11.1 Patient with melanic, coffee-ground stool prior to admission Aspirin and prednisone held on admission Placed on PPI drip EGD 08/29: Large grade C reflux esophagitis, Viktoria-Goldsmith tear with 1 clip placed, normal duodenum. Patient recommended for return to hospital care and continuation of Protonix GTT at this time GI consulted, EGD as above. Appreciate recommendations. We will continue Protonix drip, advance diet as tolerated. Hemodynamically stable this morning Trend CBC (2) Dysphagia: Plan: With solid foods for the last 2 months EGD as above (3) CAD (coronary artery disease): Plan: -Non obstructive CAD -Ok to hold aspirin -Continue atorvastatin -We will resume amlodipine, lisinopril, hydrochlorothiazide Metoprolol temporarily held for bradycardia, Kidney function normal (4) HTN (hypertension): Plan: Antihypertensives resumed as above, mildly hypertensive this afternoon. Initially held for hypotension in the setting of bleed (5) Seronegative polyarthritis: Plan: Hold prednisone in setting of gastritis and GI bleed Low threshold to restart this if having a flare (6) Mitral regurgitation: Plan: Noted murmur on exam with mild-mod MR on prior echo in 2019 (7) Rheumatoid arthritis: Plan: Prednisone as above (8) Hypokalemia: Plan: Potassium 2.9 today, magnesium normal Patient n.p.o. this morning pending GI evaluation, potassium riders 60 M EQ ordered Repeat BMP this afternoon the levo Plan: VTE Prophylaxis - SCDs Diet -advance as tolerated Disposition - admit to med/tele Admission and Anticipated Discharge Date Admission Date: August 28, 2021 Subjective Patient is seen at bedside this morning. Is alert, oriented, in no acute distress. She reports she had an episode of melenic stool which was definitely blood, she knows this well due to a family member having liver disease. She reports her bowel movements are normally brown and soft, and this 1 was coffee- ground like a little sticky and black. Denies hematemesis. Endorses she is off difficulty swallowing solid foods for about 2 months, but has not had evaluation for this. Denies lightheadedness, dizziness, chest pain, chest pressure, shortness of breath, difficulty breathing, abdominal pain today. Pending GI evaluation. No additional questions or concerns at bedside assessment. Review of Systems Review of Systems: All systems reviewed & are unremarkable except as noted in Subjective Physical Exam Physical Exam: General: A&Ox3. NAD. Cooperative. HEENT: Atraumatic, normocephalic. Visual acuity and hearing grossly intact. Pulm: CTAB A&P. -wheezes, -rales, -rhonchi. Symmetrical chest rise. No increase in work of breathing. No respiratory distress. Cardiac: RRR, soft systolic murmur. Radial pulses intact and symmetrical. Abdominal: Nontender, nondistended, soft. BS present. Extremities: Warm, dry. Results & Data Results & Data ([facility]) Vital Signs (Past 12 Hours) Vital Signs Temp Pulse Pulse Pulse Resp BP BP 08/29/21 13:02 59 L 20 131/62 08/29/21 12:46 61 20 127/67 08/29/21 12:32 65 20 108/53 L 08/29/21 11:32 36.8 C 59 L 20 150/65 H 08/29/21 11:10 36.9 C 62 18 134/68 08/29/21 09:53 56 L 08/29/21 07:18 36.8 C 60 18 128/57 L 08/29/21 04:09 37.0 C 57 L 18 124/57 L Pulse Ox 08/29/21 13:02 96 08/29/21 12:46 96 08/29/21 12:32 97 08/29/21 11:32 96 08/29/21 11:10 94 08/29/21 09:53 08/29/21 07:18 95 08/29/21 04:09 93 PG Care Time/CCT Total # of Minutes Spent Total Time Spent with Patient: Total time spent is greater than 50% in coordination of care (as documented) at patient's floor/unit and/or counseling patient: Coding Level of Care Code 66558 Subseq Hosp Care Lvl 2 Diagnoses Melena K92.1 Dysphagia R13.10 CAD (coronary artery disease) I25.118 Associated angina: with stable angina Coronary Disease-Associated Artery/Lesion type: unspecified vessel or lesion type [place] vs. transplanted heart: [place] heart HTN (hypertension) I10 Hypertension type: unspecified Seronegative polyarthritis M13.0 Mitral regurgitation I34.0 Rheumatoid arthritis M06.9 Hypokalemia E87.6 (1) CAD (coronary artery disease) Associated angina: with stable angina Coronary Disease-Associated Artery/Lesion type: unspecified vessel or lesion type [place] vs. transplanted heart: [place] heart Qualified Code(s): I25.118 - Atherosclerotic heart disease of [place] coronary artery with other forms of angina pectoris (2) HTN (hypertension) Hypertension type: unspecified Qualified Code(s): I10 - Essential (primary) hypertension
[2021-08-29 16:55] LABS: Basophils # (auto) 0.01 K/uL (0-0.2); Basophils % (auto) 0.2 %; Eosinophils % (auto) 2.5 %; Hematocrit (blood only) 33.6 % (37-47); Immature Granulocytes # (auto) 0.01 K/uL (0.00-0.02); Immature Granulocytes % (auto) 0.2 %; Lymphocytes # (auto) 0.67 K/uL (1.2-3.4); Lymphocytes % (auto) 16.5 %; Mean Corpuscular Hemoglobin 31.2 pg (25-34); Mean Corpuscular Hgb Conc 32.7 g/dL (32-36); Mean Corpuscular Volume 95.2 fL (80-100); Mean Platelet Volume 10.5 fL (7.4-10.4); Monocytes % (auto) 9.9 %; Neutrophils # (auto) 2.87 K/uL (1.4-6.5); Neutrophils % (auto) 70.7 %; Platelet Count 124 K/uL (130-400); RDW Coefficient of Variation 15.4 % (11.5-14.5); RDW Standard Deviation 53.6 fL (36.4-46.3); Red Blood Count 3.53 M/uL (4.2-5.4); White Blood Count 4.06 K/uL (4.8-10.8)
[2021-08-29 17:15] LABS: BUN Creatinine Ratio 16.7 (10-20); Calcium 7.8 mg/dl (8.5-10.1); Creatinine Clr Calc Pharmacy 72.8 ml/min; Est GFR (African American) 104.4 ml/min; Est GFR (Non-African American) 90.1 ml/min; Potassium 3.7 mmol/L (3.5-5.1)
[2021-08-29 17:32] LABS: Acanthocytes 1+; Ovalocytes 2+
[2021-08-29] MEDS: ATORVASTATIN 40 MG TAB PO SCH (19:45)
[2021-08-30] MEDS: PANTOprazole 40 MG in DEXTROSE 5% 100 ML IV SCH ×2 (01:07→06:25)
[2021-08-30] MEDS: LACTATED RINGER'S 1,000 ML IV SCH (04:51)
[2021-08-30 08:28] LABS: Basophils # (auto) 0.02 K/uL (0-0.2); Basophils % (auto) 0.5 %; Eosinophils # (auto) 0.23 K/uL (0-0.5); Eosinophils % (auto) 5.3 %; Hematocrit (blood only) 34.2 % (37-47); Hemoglobin 11.5 g/dL (12.0-16.0); Immature Granulocytes # (auto) 0.01 K/uL (0.00-0.02); Immature Granulocytes % (auto) 0.2 %; Lymphocytes # (auto) 0.66 K/uL (1.2-3.4); Lymphocytes % (auto) 15.2 %; Mean Corpuscular Hemoglobin 31.9 pg (25-34); Mean Corpuscular Hgb Conc 33.6 g/dL (32-36); Mean Corpuscular Volume 94.7 fL (80-100); Mean Platelet Volume 11.2 fL (7.4-10.4); Monocytes # (auto) 0.52 K/uL (0.11-0.59); Neutrophils # (auto) 2.89 K/uL (1.4-6.5); Neutrophils % (auto) 66.8 %; Platelet Count 139 K/uL (130-400); RDW Coefficient of Variation 15.3 % (11.5-14.5); RDW Standard Deviation 53.6 fL (36.4-46.3); Red Blood Count 3.61 M/uL (4.2-5.4); White Blood Count 4.33 K/uL (4.8-10.8)
[2021-08-30] MEDS: CHOLECALCIFEROL 1,000 UNITS 25 MCG TAB PO SCH (08:36)
[2021-08-30 08:54] LABS: Calcium 7.6 mg/dl (8.5-10.1); Creatinine Clr Calc Pharmacy 92.1 ml/min; Est GFR (African American) 110.9 ml/min; Est GFR (Non-African American) 95.6 ml/min; Potassium 3.6 mmol/L (3.5-5.1)
[2021-08-30] MEDS ORDERED: PANTOprazole 40 MG TAB PO SCH (11:00)
--- NOTE | 2021-08-30 13:14 | Discharge Summary ---
Date of Service August 30, 2021 Admission HPI Per Admitting Provider Phil Tristan is an 85 year old female who presents to the ER with nausea, vomiting and black stool. She reports no history of GI bleed, no NSAID use, change in diet, iron supplementation or pepto-bismol. She uses an aspirin daily for non- obstructive coronary artery disease and prednisone 2.5mg PO daily for rheumatoid arthritis. She does note dysphagia with bread-like textures for the last 2 months. She does have the occasional heartburn but doesn't require any regular medication for this. She started having nausea yesterday. This morning started having large amounts of black stool. In the ER hemoglobin 11.1 from prior baseline 12.7. She was given pantoprazole 40mg IV. She was mildly hypotensive and was given NSS 500ml bolus and LR 500ml bolus. BP 112/[address] A/P was concerning for wall thickening with mild surrounding infiltration involving the stomach. She was referred to medicine for admission and ongoing management of melena. Principal Diagnosis Viktoria-Brandon tear Esophagitis Discharge Exam General: A&Ox3. NAD. Cooperative. Ambulating independently around the room at time of provider assessment HEENT: Atraumatic, normocephalic. Visual acuity and hearing grossly intact Pulm: CTAB A&P. -wheezes, -rales, -rhonchi. Symmetrical chest rise. No increase in work of breathing. No respiratory distress. Cardiac: RRR, -mrg. Radial pulses intact and symmetrical. Abdominal: Nontender, nondistended, soft. BS present. Extremities: Warm, dry, sensation intact in hands and feet without asymmetry, distal extremity strength 5/5 bilaterally in hands and feet Discharge Data Allergies Allergy/AdvReac Type Severity Reaction Status Date / Time latex Allergy Severe ANAPHYLAXIS Verified 08/28/21 11:08 Penicillins Allergy Severe ANAPHYLAXIS Verified 08/28/21 11:08 shellfish derived Allergy Severe ANAPHYLAXIS Verified 08/28/21 11:08 codeine AdvReac Mild Confusion Verified 08/28/21 11:08 meloxicam AdvReac Mild Confusion Verified 08/28/21 11:08 morphine AdvReac Confusion Unverified 08/28/21 11:08 Acetaminophen CAPS Allergy Unknown Uncoded 08/28/21 11:08 Iodine SOLN Allergy Unknown Uncoded 08/28/21 11:08 Consultations 08/28/21 12:47 ED Decision to Admit Stat 08/28/21 15:58 Consult Gastroenterology Routine Procedures Performed Operation Date: 08/29/21 17:10 Actual Procedures p EGD Hemostasis - Victor Manuel ZacharyCorine Case, DO Ordered Studies 08/28/21 09:26 CT abd pelvis wo con Stat Hospital Course (1) Melena: Patient was admitted for melena suspicious for acute bleed. EGD 08/29 showed large grade C reflux esophagitis and a Viktoria-Brandon tear which was corrected with 1 clip. She did well with an uptrending hemoglobin at discharge and was discharged to outpatient follow-up on PPI therapy. To do as outpatient: 1. Continue Protonix 40 mg p.o. twice daily for 1 month, then daily as recommended at follow-up 2. Routine follow-up with PCP 3. Routine follow-up with GI within approximately 1 month 4. Temporarily hold prednisone for arthritis. If signs of steroid dependence or arthritis flare arise discussed resuming this with PCP, patient tolerating prednisone hold well at time of discharge Melena, upper GI bleed Patient was infected acute GI bleed on admission, hemoglobin 11.1 Patient with melanic, coffee-ground stool prior to admission Aspirin and prednisone held on admission. Aspirin resumed upon discharge. Placed on PPI drip, converted to p.o. PPI twice daily following EGD as below EGD 08/29: Large grade C reflux esophagitis, Viktoria-Brandon tear with 1 clip placed, normal duodenum. Patient recommended for return to hospital care and continuation of Protonix GTT at this time GI consulted, EGD as above. Appreciate recommendations. Hemoglobin was uptrending to 11.5 at discharge, did not require transfusion during admission (2) Dysphagia: With solid foods for the last 2 months EGD as above (3) CAD (coronary artery disease): -Non obstructive CAD -Ok to hold aspirin during admission, resumed on discharge -Continue atorvastatin -We will resume amlodipine, lisinopril, hydrochlorothiazide Metoprolol temporarily held for bradycardia, Kidney function normal (4) HTN (hypertension): Resumed as above (5) Seronegative polyarthritis: Hold prednisone in setting of gastritis and GI bleed Low threshold to restart this if having a flare (6) Mitral regurgitation: Noted murmur on exam with mild-mod MR on prior echo in 2019 (7) Rheumatoid arthritis: Prednisone as above (8) Hypokalemia: Potassium 2.9 on admission, magnesium normal Potassium normalized with repletion VTE Prophylaxis - SCDs, no signs of DVT during admission Total Time Total Time Spent Total Time Spent (In Minutes): Time spend day of discharge 35 minutes including direct patient care, documentation, review of labs and images, and coordination of care. Discharge Plan Discharge Items Patient Disposition: Home - Self-Care Reason For Visit: ACUTE GI BLEED Discharge Diagnosis: Upper GI Bleed Esophagitis Viktoria Brandon Tear Activity: Resume your previous activity Non-emergency contact: Primary Care Provider and [employer] Specialist Call non-emergency contact if: you have any medication questions Follow-up/Referrals: Victor Manuel Dillon DO [Physician] - Elif Reyes DO [Primary Care Provider] - 09/17/21 9:20 am Diet: Heart Healthy Addtl Attending Provider Instructions: You were seen in the hospital for black bowel movements concerning for a GI bleed. You were found to have esophagitis (inflammation of the esophagus) and a viktoria brandon tear (small surface tear in the esophagus tissue likely due to vomiting). Your Viktoria Brandon tear was closed. You have been placed on antiacid medications as below. You were clinically well, independently ambulatory, and with an uptrending hemoglobin (blood levels) at time of discharge. You have been prescribed a anti-acid medication to help your stomach/esophagus heal called protonix (pantoprazole). 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 You may take pepcid (famotidine) over the counter 10-20mg up to twice daily for reflux/heartburn as needed. Your prednisone has been temporarily held. Please discuss resuming this medication for arthritis at your primary care followup. If you experience lightheadedness, dizziness, arthritis flares, or low blood pressure please contact your family doctor regarding this medication. A followup appointment is being scheduled for you with your PCP. You should be seen seen within 1 week. You should receive a call to confirm this appointment. If you do not receive a call within 48 hours to confirm this appointment, or need to change this appointment, please call the provider's office at the number above. A followup appointment is being scheduled for you with Gastroenterology. You should be seen seen within 1 month. You should receive a call to confirm this appointment. If you do not receive a call within 48 hours to confirm this appointment, or need to change this appointment, please call the provider's office at the number above. If you develop any new or worsening symptoms including fever, chills, sweats, chest pain, chest pressure, difficulty breathing, uncontrolled nausea/vomiting, rash, wheezing, passing out or nearly passing out, bleeding, black/bloody bowel movements, or other new or concerning symptoms please call your primary care physician, or call 911 for re-evaluation in the emergency department if you are very concerned. Pending Studies at Discharge: No Stand-Alone Forms: My [facility], Smoking Cessation Medications and DC Order Prescriptions: New pantoprazole [Protonix] 40 mg tablet,delayed release (DR/EC) 40 mg PO BID 30 Days Qty: 60 RF: 0 Continued cholecalciferol (vitamin D3) 50 mcg (2,000 unit) capsule 50 mcg PO DAILY Qty: 30 RF: 0 amlodipine [Norvasc] 5 mg tablet 5 mg PO HS Qty: 90 RF: 3 atorvastatin 40 mg tablet 40 mg PO QPM Qty: 90 RF: 3 losartan 100 mg tablet 100 mg PO DAILY Qty: 90 RF: 1 Prolia 60 mg/mL syringe 60 mg subcut .every 6 months Qty: 1 RF: 1 hydrochlorothiazide 25 mg tablet 25 mg PO DAILY Qty: 90 RF: 1 metoprolol succinate 50 mg tablet extended release 24 hr 50 mg PO DAILY Qty: 90 RF: 1 Metamucil (sugar) Powder 1 tbsp PO DAILY RF: 0 aspirin [Adult Low Dose Aspirin] 81 mg tablet,delayed release (DR/EC) 81 mg PO DAILY Qty: 30 RF: 2 multivitamin capsule 1 cap PO DAILY Qty: 30 RF: 0 ascorbic acid (vitamin C) 500 mg Capsule 500 mg PO DAILY RF: 0 Restasis 0.05 % dropperette 1 drp OPB BID RF: 0 Discontinued prednisone 2.5 mg tablet 2.5 mg PO DAILY Qty: 30 RF: 5 Discharge Orders: Discharge Order (Routine); Ordered 08/30/21 Ordered By: John Garcia Admission Data Admit Date/Time: 08/28/21 13:50 Attending Provider: John Garcia Admit Provider: Lazarus Mays Primary Care Provider: Elif Reyes Other Providers: Lazarus Mays ; Victor Manuel Dillon Other Interventions: Discharge Summary Assessment (RN) Last Done: 08/30/21 12:38 Coding Level of Care Code D/C DAY MANAGEMENT >30 MINS Diagnoses Melena K92.1 Dysphagia R13.10 CAD (coronary artery disease) I25.118 Associated angina: with stable angina Coronary Disease-Associated Artery/Lesion type: unspecified vessel or lesion type [place] vs. transplanted heart: [place] heart HTN (hypertension) I10 Hypertension type: unspecified Seronegative polyarthritis M13.0 Mitral regurgitation I34.0 Rheumatoid arthritis M06.9 Hypokalemia E87.6
--- NOTE | 2021-08-30 19:37 | Progress Notes ---
GASTROENTEROLOGY PROGRESS NOTE DATE OF SERVICE: 08/30/2021 RACE: . HISTORY OF PRESENT ILLNESS: I had the pleasure of seeing Phil Tristan today. She underwent an upper en doscopy yesterday and was noted to have LA grade C reflux esophagitis as well as a Viktoria-Goldsmith tear , which underwent endoscopic hemostatic clip placement. At the present time, she states she is feelin g much better. She is tolerating p.o. intake. She denies any lightheadedness, dizziness, hematemesi s or melena. She states that she is having no abdominal pain at the present time. She denies any fur ther complaints. REVIEW OF SYSTEMS: Negative x12 point review other than pertinent positives listed in the HPI. PHYSICAL EXAMINATION: VITAL SIGNS: Today include a temperature of 36.6, pulse of 93, respirations 19, blood pressure 145/7 5, pulse ox 96% on room air. GENERAL: She is awake and cooperative, in no acute distress. CHEST: Clear to auscultation bilaterally. CARDIOVASCULAR: Regular rate and rhythm. ABDOMEN: Soft, nontender, nondistended, positive bowel sounds. There is no appreciable hepatospleno megaly. LABORATORY STUDIES: From this morning include a white blood cell count of 4.33, hemoglobin 11.5, hem atocrit 34.2 and platelet count of 139. IMPRESSION: An 85-year-old female who presented with acute blood loss anemia secondary to esophagitis and Viktoria-Goldsmith tear, who underwent endoscopic therapy and is doing well. PLAN: At the present time, I would recommend that the patient be continued on Protonix 40 mg p.o. b. i.d. I would recommend that she follow up as an outpatient in our office in 6 weeks for further eval uation and she can continue to have a regular diet at this time. I asked her to contact our office if she has any further problems or complaints. Once again, thanks for allowing me to participate in the care of this patient. If you have any furth er questions, please do not hesitate in contacting me. Job ID: [id number]
== END 2021-08-30 16:30 | disposition home or self-care (01) | DRG 369 ==
LOC: ED 08:59 → 2N 13:50 → SUATTDRO 13:50 → 2N 15:12